=== PATIENT | male | born 1960 | race Caucasian/White ===

== ENCOUNTER 2017-08-24 15:36 | Inpatient (IN) | payer BC ==
--- NOTE | ~2017-08-24 | HEMODYNAMI ---
PATIENT:DURAN YARBROUGH MEDICAL RECORD: [id number] : 56 LOCATION:[id number] ADMISSION DATE: 08/25/17 Generatedon:08/25/201715:07 Patient name: DURAN YARBROUGH Patient #: [id number] SSN: [id number] : 1960 Date of study: 08/25/2017 Page: Of Hemodynamic Procedure Report Patient Data Patient Demographics Procedure consent was obtained First Name: DURAN Gender: Male Last Name: LINNEA : 1960 Patient #: [id number] Age: 56 year(s) Race: SSN: [id number] Additional ID: [id number] Contact details [address]: [address] [place] [address] State: [place] City: [place] Zip code: [address] Past Medical History Allergies: No known allergies Admission Admission Data Admission Date: 08/24/2017 Admission Time: 15:36 [facility] Lab Result Date: 08/24/2017 Lab Result Time: 0:00 Biochemistry Name Units Result Min Max BUN mg/dl 11 --(-*--)-- 7 18 Creatinine mg/dl 0.9 --(-*--)-- 0.6 1.3 CBC Name Units Result Min Max Hemoglobin g/dl 16.5 --(--*-)-- 13.5 17.5 Procedure Procedure Types Cath Procedure PCI Procedure Coronary Stent Initial Miscellaneous Procedures Moderate Sedation up to 15 minutes Procedure Description Procedure Date Procedure Date: 08/25/2017 Procedure Start Time: 14:53 Procedure Staff Name Function Stone Roa MD Performing Physician Eloisa Garcia RT Scrub Silas Cheek RN Nurse Flip Cevallos RT Monitor Procedure Data Cath Procedure Fluoroscopy Diagnostic fluoroscopy Total fluoroscopy Time: 2.8 time: 2.8 min min Diagnostic fluoroscopy Total fluoroscopy dose: dose: 110.57 mGy 110.57 mGy Contrast Material Contrast Material Type Amount (ml) Isovue 300 58 Entry Location Entry Primary Successful Side Size Upsize Upsize Entry Closure Succes sful Closure Location (Fr) 1 (Fr) 2 (Fr) Remarks Device Remarks Femoral Left 6 Fr Exoseal artery Short Estimated blood loss: 10 ml Procedure Complications No complications Procedure Medications Medication Administration Route Dosage Oxygen NC 2 l/min Heparin Flush Bag added to field 2 bags (1000units/500ml NS) 0.9% NaCl I.V. 100 ml/hr Solumedrol I.V. 125 mg Fentanyl I.V. 100 mcg Versed I.V. 2 mg Fentanyl I.V. 100 mcg Versed I.V. 2 mg Heparin Bolus I.V. 4000 units Fentanyl I.V. 100 mcg Hemodynamics Rest HGB: 16.5 (g/dl) Heart Rate: 59 (bpm) Snapshots Pre Cath Intra NCS Post Cath Vital Signs Time Heart Resp SPO2 etCO2 NIBP (mmHg) Rhythm Pain Sedation Rate (ipm) (%) (mmHg) Status Level (bpm) 14:16:57 60 21 97 29.8 164/90(134) NSR 0 (11) 10(A) , No pain 14:21:16 55 19 97 16.4 142/77(120) NSR 0 (11) 10(A) , No pain 14:25:38 52 16 97 33.6 142/77(119) NSR 0 (11) 10(A) , No pain 14:29:56 56 17 97 8.2 147/81(118) NSR 0 (11) 10(A) , No pain 14:34:18 56 18 93 13.4 142/77(109) NSR 0 (11) 10(A) , No pain 14:39:27 55 18 95 13.4 132/79(116) NSR 0 (11) 10(A) , No pain 14:43:47 56 19 96 18.6 142/79(125) NSR 0 (11) 10(A) , No pain 14:48:07 56 19 95 14.1 139/81(122) NSR 0 (11) 10(A) , No pain 14:52:25 69 18 92 2.2 134/88(115) NSR 0 (11) 10(A) , No pain 14:56:41 54 17 96 28.3 131/73(103) NSR 0 (11) 9(A) , No pain 15:00:55 61 16 91 21.6 136/77(117) NSR 0 (11) 9(A) , No pain 15:03:48 64 18 92 19.3 140/81(123) NSR 0 (11) 9(A) , No pain Medications Time Medication Route Dose Verified Delivered Reason Notes Effectiveness by by 14:18:24 Oxygen NC 2 Stone Barretty Per physician l/min Janina Cheek RN 14:18:33 Heparin Flush added 2 Stone Barretty used for Bag to bags Janina Cheek RN procedure (1000units/500ml field NS) 14:18:45 0.9% NaCl I.V. 100 Stone Rosen Per physician ml/hr Janina Cheek RN 14:18:55 Solumedrol I.V. 125 Stone Barretty Per physician mg Janina Cheek RN 14:53:53 Fentanyl I.V. 100 Stone Rosen for sedation mcg Janina Cheek RN 14:53:59 Versed I.V. 2 mg Stone Barretty for sedation Janina Cheek RN 14:56:26 Fentanyl I.V. 100 Stone Silas for sedation mcg Janina Cheek RN 14:56:30 Versed I.V. 2 mg Stone Rosen for sedation Janina Cheek RN 14:56:39 Heparin Bolus I.V. 4000 Stone Silas for units Janina Cheek RN anticoagulation 14:57:21 Fentanyl I.V. 100 Stone Rosen for sedation mcg Janina Cheek RN Procedure Log Time Note 13:50:17 Silas Cheek RN sent for patient. Start room use. 13:53:40 Informed consent obtained and on chart 13:53:44 Diagnostic Cath Status : Elective 13:57:18 Time tracking: Regular hours 13:57:22 Plan of Care:Hemodynamics will remain stable., Cardiac rhythm will remain stable., Comfort level will be maintained., Respiratory function will remain adequate., Patient/ family verbilizes understanding of procedure., Procedure tolerated without complication., Recovers from procedure without complications.. 14:05:13 Patient received from Med II to [facility] 3 Alert and oriented. Tansferred to table in Supine position. 14:05:14 Warm blankets applied, and airam hugger turned on for patient comfort. 14:05:15 Correct patient and procedure confirmed by team. 14:05:15 ECG and BP/O2 sat monitors applied to patient. 14:15:36 Vital chart was started 14:17:58 Baseline sample Acquired. 14:18:01 Rhythm: sinus rhythm 14:18:05 Full Disclosure recording started 14:18:20 H&P Date Dictated: 08/24/2017 Within 30 days and on chart.. 14:18:24 Oxygen 2 l/min NC was administered by Silas Cheek RN; Per physician; 14:18:33 Heparin Flush Bag (1000units/500ml NS) 2 bags added to field was administered by Silas Cheek RN; used for procedure; 14:18:45 0.9% NaCl 100 ml/hr I.V. was administered by Silas Cheek RN; Per physician; 14:18:55 Solumedrol 125 mg I.V. was administered by Silas Cheek RN; Per physician; 14:19:44 Pre-procedure instructions explained to patient. 14:19:46 Pre-op teaching completed and patient verbalized understanding. 14:19:47 Family in patients room. 14:19:48 Patient NPO since Midnight. 14:19:55 Patient allergic to No known allergies 14:19:57 Is the patient allergic to Iodine/contrast media? No. 14:19:58 Is patient on blood thinner?Yes 14:20:00 ACC The patient was administered the following blood thiners within the last 24 hours: ACCPlavix 14:20:01 Patient diabetic? No. 14:20:10 Previous problem with sedation/anesthesia? No ? 14:20:11 Snore? Yes 14:20:11 Sleep apnea? No 14:20:12 Deviated septum? No 14:20:13 Opens mouth fully? Yes 14:20:13 Sticks out tongue? Yes 14:20:16 Airway obstruction? No ? 14:20:22 Dentures? Yes In tight 14:20:26 Pre procedure: left dorsailis pedis pulse 1+ Palpable, but thready & weak; easily obliterated 14:23:07 Patient pain scale 0/10 ?. 14:23:52 IV patent on arrival in right antecubital with 0.9% NaCl at [facility]. 14:23:55 Lab results completed and on chart. 14:23:58 Left groin area was prepped with chlora-prep and draped in sterile fashion 14::59 Alarms reviewed by R. N. 14::59 Sharps counted by scrub and verified by R.N. 14:24:02 Use device set Femoral PCI 14:24:03 Tegaderm 4 x 4 opened to sterile field. 14:24:05 Acist Manifold opened to sterile field. 14:24:07 Acist Syringe opened to sterile field. 14:24:07 Acist Hand Control opened to sterile field. 14:24:08 Bag Decanter opened to sterile field. 14:24:08 Medline Cath Pack opened to sterile field. 14:24:09 Terumo 6Fr [place] Sheath opened to sterile field. 14:24:09 St Hector 260cm J .035 wire opened to sterile field. 14:24:10 Merit BasixCompak Inflation Kit opened to sterile field. 14:24:18 Zero performed for pressure channel P1 14:45:37 Physician arrived 14:45:37 --------ALL STOP TIME OUT------ 14:45:37 Final Timeout: patient, procedure, and site verified with staff and physician. All members of the team are in agreement. 14:45:39 Left groin site verified by team. 14:45:49 Physical assessment completed. ASA score P 2 - A patient with mild systemic disease as per Stone Roa MD. 14:45:52 Sedation plan: IV Moderate Sedation Versed, Fentanyl 14:53:53 Fentanyl 100 mcg I.V. was administered by Silas Cheek RN; for sedation; 14:53:55 Local anesthetic to left femerol artery with Lidocaine 2% by Stone Roa MD.INITIAL ACCESS ONLY 14:53:59 Versed 2 mg I.V. was administered by Silas Cheek RN; for sedation; 14:54:02 A 6 Fr Short sheath was inserted into the Left Femoral artery 14:55:14 Cordis 6FR XBLAD 4.0 guide catheter opened to sterile field. 14:55:20 6 Fr xblad 4 guide catheter was inserted over the wire 14:55:43 [place] Sci PT Graphix J 182cm 0.014 guide wire opened to sterile field. 14:55:56 pt graphix wire advanced. 14:55:58 Wire advanced across lesion. 14:56:26 Fentanyl 100 mcg I.V. was administered by Silas Cheek RN; for sedation; 14:56:30 Versed 2 mg I.V. was administered by Silas Cheek RN; for sedation; 14:56:39 Heparin Bolus 4000 units I.V. was administered by Silas Cheek RN; for anticoagulation; 14:57:05 Inflation Number: 1 A Newry OTW 2.5 x 38 stent was prepped and advanced across the Prox LAD. The stent was deployed at 15 JOSHUA for 0:10 (min:sec). 14:57:13 Stent catheter was removed intact over wire. 14:57:21 Fentanyl 100 mcg I.V. was administered by Silas Cheek RN; for sedation; 15:00:14 Inflation Number: 1 A Wilberto RX 2.25 x 18 stent was prepped and advanced across the Mid LAD. The stent was deployed at 13 JOSHUA for 0:10 (min:sec). 15:00:41 Stent catheter was removed intact over wire. 15:00:41 Wire removed. 15:00:42 Guide catheter removed. 15:00:47 Cordis 6Fr Exoseal opened to sterile field. 15:00:53 Sheath removed intact; hemostasis achieved with Exoseal to the Left Femoral artery. 15:00:54 Procedure ended.(Physican Out) 15:01:56 Fluoroscopy time 02.80 minutes. 15:02:02 Flurop Dose total: 110.57 15:02:02 Fluoroscopy dose: 110.57 mGy 15:02:05 Contrast amount:Isovue 300 58ml. 15:02:06 Sharps counted by scrub and verified by R.N. 15:02:10 Insertion/operative site no bleeding no hematoma. 15:02:13 Post-op/insertion site Left Femoral artery dressed using a 4 x 4 and Tegaderm. 15:02:27 Post left femerol artery:stable, soft, clean and dry 15:02:28 Post Procedure Pulses reassessed and unchanged 15:02:34 Post-procedure physical assessment completed. ASA score P 2 - A patient with mild systemic disease as per Stone Roa MD. 15:02:40 Post procedure rhythm: unchanged. 15:02:43 Estimated blood loss: 10 ml 15:02:45 Post procedure instruction explained to patient.Patient verbalizes understanding. 15:02:45 Patient needs reinforcement of post procedure teaching. 15:02:57 Procedure type changed to Cath procedure, PCI procedure, Coronary Stent Initial, Miscellaneous Procedures, Moderate Sedation up to 15 minutes 15:06:09 PERCUTANEOUS ENTRY 19GA needle opened to sterile field. 15:06:22 Procedure and supply charges have been captured, reviewed, submitted and are correct. 15:06:24 Procedure Complication : No complications 15:06:26 Vital chart was stopped 15:06:27 See physician's report for complete and final results. 15:06:29 Report given to PCU. 15:06:31 Patient transfered to PCU with Stretcher. 15:07:01 End room use (Document Last) Intervention Summary Intervention Notes Time ActionType Lesion and Equipment Action# Pressure Duration Attributes Used 14:57:05 Place stent Prox LAD Newry OTW 1 15 00:10 2.5 x 38 stent 15:00:14 Place stent Mid LAD Newry RX 1 13 00:10 2.25 x 18 stent Device Usage Item Name Manufacture Quantity Catalog Number Hospital Part Current Min imal Lot# / Charge Number Stock Stock Serial# Code Tegaderm 4 x 3M 1 [id number] 461349 932090 5 4 Acist Acist 1 81898 373113 907669 241778 5 Manifold Medical Systems Inc Acist Acist 1 96354 781209 294695 340895 20 Syringe Medical Systems Inc Acist Hand Acist 1 07386 058045 111222 055850 5 Control Medical Systems Inc Bag Decanter Microtek 1 2002S 582845 97628 012548 5 Medical Inc. Medline Cath Cardinal 1 [id number] 829728 88927 334580 5 Pack Health Terumo 6Fr Terumo 1 [id number] 314988 223828 482027 [address] St Hector 1 936133 627934 075528 890907 30 260cm J .035 wire Merit Merit 1 [id number] 565479 473075 055000 15 Yobongo Medical Inflation Kit Cordis 6FR Cardinal 1 [id number] 554527 044500 392534 3 XBLAD 4.0 Health guide catheter Maywood Sci Maywood 1 [id number] 271087 353117 033593 5 PT Gateway EDI Scientific 182cm 0.014 guide wire Wilberto OTW 2.5 Medtronic 1 [id number] 113870 90734 714229 5 [id number] x 38 stent Newry RX 2.25 Medtronic 1 [id number] 291389 0390146 047448 5 [id number] x 18 stent Cordis 6Fr Cardinal 1 [id number] 166837 449018 019217 10 [facility] 1 [id number] 172108 267700 5 ENTRY 19GA needle Signature Audit [place] Stage Time Signature Unsigned Intra-Procedure 08/25/2017 Flip Cevallos 3:07:18 PM RT(R) Signatures Monitor : Flip Cevallos RT Signature : Date : Time : [address] [id number]
--- NOTE | ~2017-08-24 | HEMODYNAMI ---
PATIENT:DURAN YARBROUGH MEDICAL RECORD: [id number] : 56 [id number] ADMISSION DATE: 08/24/17 Generatedon:08/24/201716:32 Patient name: DURAN YARBROUGH Patient #: [id number] SSN: [id number] : 1960 Date of study: 08/24/2017 Page: Of Hemodynamic Procedure Report Patient Data Patient Demographics Procedure consent was obtained First Name: DURAN Gender: Male Last Name: LINNEA : 1960 Patient #: [id number] Age: 56 year(s) Race: SSN: [id number] Additional ID: [id number] Contact details Address: [address] [place] [address] State: [place] City: [place] Zip code: [address] Admission Admission Data Admission Date: 08/24/2017 Admission Time: 15:36 Room #: D.2119 Lab Results Lab Result Date: 08/24/2017 Lab Result Time: 0:00 Biochemistry Name Units Result Min Max BUN mg/dl 11 --(-*--)-- 7 18 Creatinine mg/dl 0.9 --(-*--)-- 0.6 1.3 CBC Name Units Result Min Max Hemoglobin g/dl 16.5 --(--*-)-- 13.5 17.5 Procedure Procedure Types Cath Procedure Diagnostic Procedure [facility] w/Coronaries PCI Procedure Coronary Stent Initial Miscellaneous Procedures Moderate Sedation up to 30 minutes Procedure Description Procedure Date Procedure Date: 08/24/2017 Procedure Start Time: 16:10 Procedure End Time: 16:29 Procedure Staff Name Function Stone Roa MD Performing Physician Bebe Cyr RT Scrub Eloisa Garcia RT Monitor Andreia House RN Nurse Procedure Data Cath Procedure Fluoroscopy Diagnostic fluoroscopy Total fluoroscopy Time: 6.1 time: 6.1 min min Diagnostic fluoroscopy Total fluoroscopy dose: 718 dose: 718 mGy mGy Contrast Material Contrast Material Type Amount (ml) Isovue 300 98 Entry Location Entry Primary Successful Side Size Upsize Upsize Entry Closure Succes sful Closure Location (Fr) 1 (Fr) 2 (Fr) Remarks Device Remarks Femoral Right 6 Fr Exoseal artery Short Estimated blood loss: 5 ml Diagnostic catheters Device Type Used For End Catheter Placement Cordis 5Fr Pigtail LV Angiography Catheter (MP) Cordis 5Fr JL 4.0 Left Coronary Catheter (MP) Angiography Cordis 5Fr 3DRC Catheter Right Coronary (MP) Angiography Procedure Complications No complications Procedure Medications Medication Administration Route Dosage Benadryl I.V. 50 mg Oxygen NC 2 l/min Lidocaine 2% added to field 20 Heparin Flush Bag added to field 2 bags (1000units/500ml NS) 0.9% NaCl I.V. 100 Versed I.V. 1 mg Fentanyl I.V. 50 mcg Heparin Bolus I.V. 4000 units Versed I.V. 1 mg Fentanyl I.V. 50 mcg Versed I.V. 1 mg Fentanyl I.V. 50 mcg Versed I.V. 1 mg Fentanyl I.V. 50 mcg Hemodynamics Rest HGB: 16.5 (g/dl) Heart Rate: 56 (bpm) Pressure Samples Time Site Value (mmHg) Purpose Heart Use Rate(bpm) 16:12 LV 44/-5,10 Snapshot 52 Snapshots Pre Cath Intra NCS Post Cath Vital Signs Time Heart Resp SPO2 etCO2 NIBP (mmHg) Rhythm Pain Sedation Rate (ipm) (%) (mmHg) Status Level (bpm) 16:02:58 52 16 94 0 166/90(136) NSR 0 (11) 10(A) , No pain 16:07:49 59 15 96 23.1 160/98(126) NSR 0 (11) 10(A) , No pain 16:12:38 52 29 94 4.4 140/81(108) NSR 0 (11) 9(A) , No pain 16:17:24 58 16 93 17.8 142/83(119) NSR 0 (11) 9(A) , No pain 16:22:09 69 16 95 23.8 146/83(115) NSR 0 (11) 9(A) , No pain 16:26:56 77 19 95 18.6 156/90(128) NSR 0 (11) 10(A) , No pain Medications Time Medication Route Dose Verified Delivered Reason Notes Effectiveness by by 16:01:51 Benadryl I.V. 50 mg Stone Buffie used for Janina House RN procedure 16:02:20 Oxygen NC 2 Stone Buffie used for l/min Janina House RN procedure 16:05:12 Lidocaine 2% added 20ml Stone Stone for local to vial Janina Roa MD anesthetic field 16:05:18 Heparin Flush added 2 Stone Stone used for Bag to bags Janina Roa MD procedure (1000units/500ml field NS) 16:05:27 0.9% NaCl I.V. 100\ Stone Buffie Per physician ml/hr Janina House RN 16:07:14 Versed I.V. 1 mg Stone Buffie for sedation Janina House RN 16:07:17 Fentanyl I.V. 50 Stone Buffie for sedation mcg Janina House RN 16:11:49 Versed I.V. 1 mg Stone Buffie for sedation Janina House RN 16:11:55 Fentanyl I.V. 50 Stone Buffie for sedation mcg Janina House RN 16:17:13 Heparin Bolus I.V. 4000 Stone Buffie for verifi ed units Janina House RN anticoagulation with dr roa 16:18:49 Versed I.V. 1 mg Stone Buffie for sedation Janina House RN 16:18:53 Fentanyl I.V. 50 Stone Buffie for sedation mcg Janina House RN 16:24:53 Versed I.V. 1 mg Stone Buffie for sedation Janina House RN 16:24:57 Fentanyl I.V. 50 Stone Buffie for sedation mcg Janina House RN Procedure Log Time Note 15:50:09 Bebe Cyr RT(R) sent for patient. Start room use. 16:00:22 Informed consent obtained and on chart 16:00:24 Diagnostic Cath Status : Elective 16:01:25 Time tracking: Regular hours 16:01:33 Plan of Care:Hemodynamics will remain stable., Cardiac rhythm will remain stable., Comfort level will be maintained., Respiratory function will remain adequate., Patient/ family verbilizes understanding of procedure., Procedure tolerated without complication., Recovers from procedure without complications.. 16:01:50 Patient received from Med II to [facility] 1 Alert and oriented. Tansferred to table in Supine position. 16:01:51 Benadryl 50 mg I.V. was administered by Andreia House RN; used for procedure; 16:01:52 Warm blankets applied, and airam hugger turned on for patient comfort. 16:01:53 Correct patient and procedure confirmed by team. 16:01:53 ECG and BP/O2 sat monitors applied to patient. 16:01:54 Vital chart was started 16:01:55 Baseline sample Acquired. 16:02:12 Rhythm: sinus rhythm 16:02:18 H&P Date Dictated: 08/24/2017 New H&P dictated by physician.. 16:02:20 Oxygen 2 l/min NC was administered by Andreia House RN; used for procedure; 16:02:20 Pre-procedure instructions explained to patient. 16:02:21 Pre-op teaching completed and patient verbalized understanding. 16:02:23 Family unavailable. 16:02:24 Patient NPO since Breakfast. 16:03:20 Is the patient allergic to Iodine/contrast media? No. 16:03:22 Was the patient premedicated? No 16:03:23 Is patient on blood thinner?Yes 16:03:26 ACC The patient was administered the following blood thiners within the last 24 hours: ACCPlavix 16:03:34 Patient diabetic? No. 16:03:38 Previous problem with sedation/anesthesia? No ? 16:03:40 Snore? Yes 16:03:41 Sleep apnea? No 16:03:42 Deviated septum? No 16:03:43 Opens mouth fully? Yes 16:03:44 Sticks out tongue? Yes 16:03:47 Airway obstruction? No ? 16:03:59 Dentures? Yes in tight 16:04:03 Pre procedure: right dorsailis pedis pulse 1+ Palpable, but thready & weak; easily obliterated 16:04:06 Pre procedure: left dorsailis pedis pulse 1+ Palpable, but thready & weak; easily obliterated 16:04:14 Patient pain scale 3/10 ?. 16:05:12 Lidocaine 2% 20ml vial added to field was administered by Stone Roa MD; for local anesthetic; 16:05:18 Heparin Flush Bag (1000units/500ml NS) 2 bags added to field was administered by Stone Roa MD; used for procedure; 16:05:27 0.9% NaCl 100\ ml/hr I.V. was administered by Andreia House RN; Per physician; 16:05:50 IV patent on arrival in left forearm with 0.9% NaCl at [facility]. 16:05:55 Lab results completed and on chart. 16:05:59 Right groin area was prepped with chlora-prep and draped in sterile fashion 16:06:00 Alarms reviewed by R. N. 16:06:00 Sharps counted by scrub and verified by R.N. 16:06:04 Physician arrived 16:06:06 --------ALL STOP TIME OUT------ 16:06:06 Final Timeout: patient, procedure, and site verified with staff and physician. All members of the team are in agreement. 16:06:09 Right groin site verified by team. 16:06:13 Physical assessment completed. ASA score P 2 - A patient with mild systemic disease as per Stone Roa MD. 16:06:17 Sedation plan: IV Moderate Sedation Versed, Fentanyl 16:06:23 Use device set Femoral Dx 16:06:24 Acist Syringe opened to sterile field. 16:06:25 Bag Decanter opened to sterile field. 16:06:25 Medline Cath Pack opened to sterile field. 16:06:25 Terumo 5Fr [place] Sheath opened to sterile field. 16:06:26 St Hector 260cm J .035 wire opened to sterile field. 16:06:27 Acist Hand Control opened to sterile field. 16:06:28 Acist Manifold opened to sterile field. 16:06:29 Diagnostic Infinity 5Fr Multipack catheter opened to sterile field. 16:06:29 Tegaderm 4 x 4 opened to sterile field. 16:07:14 Versed 1 mg I.V. was administered by Andreia House RN; for sedation; 16:07:17 Fentanyl 50 mcg I.V. was administered by Andreia House RN; for sedation; 16:07:20 Lab Result : Hemoglobin 16.5 g/dl 16:07:20 Lab Result : Creatinine 0.9 mg/dl 16:07:20 Lab Result : BUN 11 mg/dl 16:10:39 Procedure started. 16:10:40 Full Disclosure recording started 16:10:45 Local anesthetic to right femoral artery with Lidocaine 2% by Stone Roa MD.INITIAL ACCESS ONLY 16:10:48 Zero performed for pressure channel P1 16:11:45 A 6 Fr Short sheath was inserted into the Right Femoral artery 16:11:49 Versed 1 mg I.V. was administered by Andreia House RN; for sedation; 16:11:55 Fentanyl 50 mcg I.V. was administered by Andreia House RN; for sedation; 16:11:56 A Cordis 5Fr Pigtail Catheter (MP) was advanced over the wire and used for LV Angiography. 16:12:39 LV hemodynamics recorded. 16:12:41 LV gram done using SARMIENTO 16:12:45 Injector settings: Ml/sec: 5, Volume: 15, 16:12:52 EF : 50 % 16:12:56 Catheter removed. 16:13:00 A Cordis 5Fr JL 4.0 Catheter (MP) was advanced over the wire and used for Left Coronary Angiography. 16:13:33 LCA angiography performed. 16:13:36 Injector settings: Ml/sec: 3, Volume: 6, 16:14:20 Merit BasixCompak Inflation Kit opened to sterile field. 16:15:13 Catheter removed. 16:15:48 A Cordis 5Fr 3DRC Catheter (MP) was advanced over the wire and used for Right Coronary Angiography. 16:16:06 RCA angiography performed. 16:16:10 Injector settings: Ml/sec: 3, Volume: 6, 16:16:12 Proceeding to intervention. 16:17:04 Vieira Whisper J 300cm 0.014 guide wire opened to sterile field. 16:17:13 Heparin Bolus 4000 units I.V. was administered by Andreia House RN; for anticoagulation; verified with dr roa 16:18:04 Medtronic Launcher 6Fr AR 2.0 guide catheter opened to sterile field. 16:18:05 Medtronic Launcher 6Fr AR 1.0 SH guide catheter opened to sterile field. 16:18:30 6 Fr ar 2 guide catheter was inserted over the wire 16:18:38 Guide Catheter removed. unable to cannulate vessel. 16:18:48 6 Fr ar 1 sh guide catheter was inserted over the wire 16:18:49 Versed 1 mg I.V. was administered by Andreia House RN; for sedation; 16:18:53 Fentanyl 50 mcg I.V. was administered by Andreia House RN; for sedation; 16:19:40 whisper wire advanced. 16:20:30 Inflation number: 1 A Patillas Sci Rowan 3.0 X 20 balloon was prepped and advanced across the Mid RCA, then inflated to 13 JOSHUA for 0:10 (min:sec). 16:21:03 Balloon removed over the wire. 16:22:40 Inflation Number: 2 A Skyforest OTW 3.5 x 26 stent was prepped and advanced across the Mid RCA. The stent was deployed at 13 JOSHUA for 0:10 (min:sec). 16:23:29 Stent catheter was removed intact over wire. 16:24:53 Versed 1 mg I.V. was administered by Andreia House RN; for sedation; 16:24:57 Fentanyl 50 mcg I.V. was administered by Andreia House RN; for sedation; 16:25:48 Inflation Number: 1 A Skyforest OTW 3.5 x 34 stent was prepped and advanced across the Prox RCA. The stent was deployed at 13 JOSHUA for 0:10 (min:sec). 16:26:28 Stent catheter was removed intact over wire. 16:26:29 Wire removed. 16:26:29 Guide catheter removed. 16:26:42 Cordis 6Fr Exoseal opened to sterile field. 16:26:56 Sheath removed intact; hemostasis achieved with Exoseal to the Right Femoral artery. 16:27:27 Procedure ended.(Physican Out) 16:28:15 Fluoroscopy time 06.10 minutes. 16:28:27 Fluoroscopy dose: 718 mGy 16:28:27 Flurop Dose total: 718 16:28:36 Contrast amount:Isovue 300 98ml. 16:28:41 Sharps counted by scrub and verified by R.N. 16:28:45 Insertion/operative site no bleeding no hematoma. 16:28:48 Post-op/insertion site Right Femoral artery dressed using a 4 x 4 and Tegaderm. 16:28:52 Post right femoral artery:stable 16:28:53 Post Procedure Pulses reassessed and unchanged 16:28:56 Post procedure rhythm: unchanged. 16:28:59 Estimated blood loss: 5 ml 16:29:00 Post procedure instruction explained to patient.Patient verbalizes understanding. 16:29:01 Patient needs reinforcement of post procedure teaching. 16:29:28 Procedure type changed to Cath procedure, Diagnostic procedure, LHC, LHC w/Coronaries, PCI procedure, Coronary Stent Initial, Miscellaneous Procedures, Moderate Sedation up to 30 minutes 16:29:30 Procedure and supply charges have been captured, reviewed, submitted and are correct. 16:29:34 Procedure Complication : No complications 16:29:37 Vital chart was stopped 16:29:37 See physician's report for complete and final results. 16:29:41 Report given to [facility]. 16:29:44 Patient transfered to [facility] with Stretcher. 16:29:46 Procedure ended. 16:29:46 Full Disclosure recording stopped 16:29:56 ACC-PCI Only Patient was given prescriptions, or instructed by Stone Roa MD to start/continue the following medications upon discharge: Plavix 16:29:58 End room use (Document Last) Intervention Summary Intervention Notes Time ActionType Lesion and Equipment Action# Pressure Duration Attributes Used 16:20:30 Inflate Mid RCA Patillas 1 13 00:10 balloon Sci Rowan 3.0 X 20 balloon 16:22:40 Place stent Mid RCA Skyforest OTW 2 13 00:10 3.5 x 26 stent 16:25:48 Place stent Prox RCA Wilberto OTW 1 13 00:10 3.5 x 34 stent Device Usage Item Name Manufacture Quantity Catalog Number Hospital Part Current Min imal Lot# / Charge Number Stock Stock Serial# Code Acist Acist 1 85919 558064 878138 979977 20 Syringe Medical Systems Inc Bag Microtek 1 2002S 342583 87671 240420 5 Happy Hour Pal Inc. Medline Cardinal 1 [id number] 167997 48776 589184 5 Cath Atmocean Terumo 5Fr Terumo 1 HSS310 949459 039589 377538 [address] St Hector 1 618784 784883 368491 052809 30 260cm J .035 wire Acist Hand Acist 1 00391 755555 828027 646554 5 Pocket Change Card [employer] Systems Inc Acist Acist 1 78676 505869 305508 321520 5 DinersGroup Medical Systems Inc Diagnostic Cardinal 1 IL0416 856006 16516 788163 30 Shoes4you 5Fr Multipack catheter Tegaderm 4 3M 1 1626W 916531 439021 774791 5 x 4 Cordis 5Fr Cardinal 1 887794 5 Pigtail Health Catheter (MP) Cordis 5Fr Cardinal 1 608702 5 JL 4.0 Health Catheter (MP) [facility] 1 TB8536 315790 727499 004564 15 Bio Medical Inflation Kit Cordis 5Fr Cardinal 1 611741 5 3DRC Health Catheter (MP) Vieira Vieira 1 [id number] 530094 123462 139987 5 Whisper J Vascular 300cm 0.014 guide wire Medtronic Medtronic 1 [id number] 784282 21741 230210 1 Launcher 6Fr AR 2.0 guide catheter Medtronic Medtronic 1 [id number] 437192 77220 530553 1 Launcher 6Fr AR 1.0 SH guide catheter Patillas Sci Patillas 1 [id number] 238066 503136 367795 1 [id number] ThoughtBox 3.0 X 20 balloon Skyforest OTW Medtronic 1 [id number] 635085 9366630 295646 5 [id number] 3.5 x 26 stent Wilberto OTW Medtronic 1 [id number] 198421 4225452 586897 5 [id number] 3.5 x 34 stent Cordis 6Fr Cardinal 1 EX600 902358 289430 852053 10 [facility] Signature Audit Spencer Stage Time Signature Unsigned Intra-Procedure 08/24/2017 Eloisa Garcia 4:32:45 PM RT(R) Signatures Monitor : Eloisa Garcia RT Signature : Date : Time : [facility] [address] [place] [address]
[2017-08-24 15:54] VITALS: BP 143/82; BMI 31.8
[2017-08-24 16:44] VITALS: BP 142/82
--- NOTE | 2017-08-24 16:52 | NUR ---
BACK FROM [employer] TECHNICIAN. VS WNL. RIGHT GROIN STABLE WITHOUT BLEEDING OR HEMATOMA NOTED. WILL MONITOR.
[2017-08-24] MEDS ORDERED: NORVASC10 MG PO (16:54)
[2017-08-24] MEDS ORDERED: CELEXA20 MG PO (16:55)
[2017-08-24] MEDS ORDERED: VALIUM5 MG PO (16:55)
[2017-08-24] MEDS ORDERED: PLAVIX75 MG PO (16:55)
[2017-08-24] MEDS ORDERED: HYDROCODONE-APA1 TAB PO (16:56)
[2017-08-24] MEDS ORDERED: MECLIZINE HCL25 MG PO (16:56)
[2017-08-24] MEDS ORDERED: PROTONIX40 MG PO (16:57)
[2017-08-24] MEDS ORDERED: TOPROL XL50 MG PO (16:57)
[2017-08-24] MEDS ORDERED: CARAFATE1 G PO (16:58)
[2017-08-24] MEDS ORDERED: LIDOCAINE 2 %100 ML PO (16:59)
--- NOTE | 2017-08-24 19:51 | NUR ---
RESUMED CARE OF PT, LYING IN BED RESPIRATIONS EVEN AND UNLABORED ON 2LPM VIA NC. 57 SB ON TELEMETRY. RIGHT GROIN WITHIN NORMAL LIMITS, PEDAL PULSE PALPABLE. RIGHT AC INFUSING NS @ 100. PLAN OF CARE DISCUSSED, CALL LIGHT IN REACH. WILL CONTINUE TO MONITOR. SEE NURSE ASSESSMENT.
[2017-08-24 21:42] VITALS: BP 123/65
--- NOTE | 2017-08-24 21:53 | NUR ---
BEDREST IS UP, PT UP IN ROOM TAKING A SPONGE BATH. WILL CONTINUE TO MONITOR.
--- NOTE | 2017-08-25 02:22 | NUR ---
CALL LIGHT IN REACH. WILL CONTINUE WITH PLAN OF CARE. 50 SB ON TELEMETRY
--- NOTE | 2017-08-25 06:56 | NUR ---
NO CHANGES FROM PREVIOUS ASSESSMENT, CALL LIGHT IN REACH.
--- NOTE | 2017-08-25 08:00 | NUR ---
ASSESSMENT DONE. DENIES NEEDS,
[2017-08-25 08:53] VITALS: BP 146/79
--- NOTE | 2017-08-25 09:21 | NUR ---
TELEMETRY SR. CALL LIGHT IN REACH. NO C/O VOICED. WILL CONT. PLAN OF CARE.
[2017-08-25 09:46] VITALS: BMI 31.7
--- NOTE | 2017-08-25 09:55 | NUR ---
C/O OF ITCHING ALL OVER. NO RASH NOTED. DR MURPHY NOTIFIED. NEW ORDERS GIVEN.
--- NOTE | 2017-08-25 10:04 | NUR ---
CONSENTS SIGNED FOR [facility].
[2017-08-25 11:57] VITALS: BP 116/69
--- NOTE | 2017-08-25 14:03 | NUR ---
PRE-OPS GIVEN. TO EMBEDDED PROCESSOR BY BED.
--- NOTE | 2017-08-25 15:26 | NUR ---
BACK FROM [facility]. VS WNL. LEFT GROIN STABLE WITHOUT BLEEDING OR HEMATOMA NOTED. WILL MONITOR.
--- NOTE | 2017-08-25 19:46 | NUR ---
RESUMED CARE OF PT, LYING IN BED RESPIRATIONS EVEN AND UNLABORED ON 2LPM VIA NC. BEDREST IS UP, LEFT AND RIGHT GROINS ARE WNL WITH PEDAL PULSES PALPABLE. CALL LIGHT IN REACH. WILL CONTINUE TO MONITOR. SEE NURSE ASSESSMENT.
[2017-08-25 21:18] VITALS: BP 133/111
[2017-08-26 01:16] VITALS: BP 106/52
[2017-08-26 04:49] VITALS: BP 136/68
--- NOTE | 2017-08-26 05:39 | NUR ---
LYING IN BED WITH CALL LIGHT IN REACH. WILL CONTINUE WITH PLAN OF CARE.
--- NOTE | 2017-08-26 06:42 | NUR ---
NO CHANGES FROM PREVIOUS ASSESSMENT, HAS ITCHED ON AND OFF THROUGHOUT THE NIGHT. BENADRYL WAS GIVEN X 2.
[2017-08-26 08:00] VITALS: BP 161/83
[2017-08-26] MEDS ORDERED: PRAVACHOL20 MG PO (11:39)
[2017-08-26] MEDS ORDERED: ASPIRIN81 MG PO (11:39)
--- NOTE | 2017-08-26 12:56 | NUR ---
IV AND TELEMETRY DCD. DC PLANS GIVEN. UNDERSTANDING VOICED. LEAVING HOSPITOL WITH FAMILY MEMBER.
--- NOTE | 2017-08-29 12:24 | HP ---
PATIENT: DURAN YARBROUGH MEDICAL RECORD: [id number] ACCOUNT: [id number] LOCATION:[facility].2119 : 56 ADMISSION DATE: 08/25/17 HISTORY AND PHYSICAL EXAMINATION DIAGNOSES: 1. Non-Q-wave myocardial infarction. 2. Hypertension. HISTORY OF PRESENT ILLNESS: This is a gentleman with ____ who has been having 2 weeks of chest pain. He attributed this to GERD, has been treated for GERD; however, the pain has continued to worsen. He presented to [facility] with worsening chest pain, troponin is positive for non-Q-wave myocardial infarction. His EKG is with nonspecific ST-T abnormalities. He continues to have the episodes of pain. REVIEW OF SYSTEMS: The patient reports easy bruising but reports no swollen glands. The patient reports no fever, no night sweats, no significant weight gain, no significant weight loss. No significant exercise tolerance. The patient reports no dry eyes, no irritation, no vision change. Patient reports no difficulty hearing and no ear pain. Patient reports no frequent nose bleeds or nose and sinus problems. Patient reports on arm pain on exertion. No shortness of breath while lying down. No history of heart murmur. Patient reports no cough, no wheezing or coughing up blood. Patient reports no abdominal pain, no vomiting. Normal appetite. No diarrhea and not vomiting blood. No nausea and no constipation. Patient reports no incontinence. No difficulty urinating. No hematuria. No increased frequency. Patient reports no muscle aches. No weakness, no arthralgias, no back pain. No swelling of the extremities. Patient reports no abnormal mole, no jaundice, no rashes. Reports no loss of consciousness. No weakness and no numbness. No seizures, dizziness, or headaches. The patient reports no depression, no sleep disturbance, feeling safe in a relationship and no alcohol abuse. Patient reports on fatigue. Reports no runny nose or sinus pressure. No itching, no hives, and no frequent sneezing. PHYSICAL EXAMINATION: GENERAL APPEARANCE: Well-nourished, well-developed, appears stated age. Level of distress, comfortable. PSYCHIATRIC: Mental status, alert, normal affect. Orientation, oriented to time, place and person. EYES: Lids and conjunctiva, noninjected. No discharge, no pallor. ENT: Lips, teeth, gums, normal dentition. Oropharynx, no cyanosis, no pallor. NECK: Carotid arteries, bilateral normal upstroke, no bruits, no thrills. JUGULAR VEINS: No jugular venous pressure or distention. CERVICAL LYMPH NODES: Nontender, nonenlarged. THYROID: Not enlarged. Nontender. No nodules. LUNGS: Respiratory effort, unlabored. CHEST: Normal curvature. No thoracic deformity. No chest wall tenderness. Percussion, resonant. Auscultation, clear. No wheezes, no rales, no rhonchi. CARDIOVASCULAR: Precordial exam, nondisplaced. No heaves or pericardial thrills. Rate and rhythm, regular. Heart sounds, normal S1, normal S2. No S3, no gallop, no rub. Systolic murmur, not heard. Diastolic murmur, not heard. EXTREMITIES: No cyanosis, no edema. Peripheral pulses, full and equal in all extremities, except as noted. No bruits appreciated. ABDOMEN: Soft, nondistended. Normal aorta. No bruit. Nontender. No masses. HISTORY AND PHYSICAL [id number] SUIRE,DURAN Liver, nontender, no hepatomegaly. Spleen, nontender, no splenomegaly. MUSCULOSKELETAL: No joint tenderness. No joint swelling. No erythema. NEUROLOGICAL: Normal gait, normal strength, normal tone. SKIN: Warm and dry. OVERALL IMPRESSION: Non-Q-wave myocardial infarction with continued angina. We will proceed with coronary angiography. Further care depends on the findings of the angiography. TRANSINT:[id number] Voice Confirmation ID: [id number] DOCUMENT ID: [id number] FLOYD MURPHY MD at 1224 CC: [id number] DICTATION DATE: 08/24/17 1544 ROLL PICKER: 08/24/17 1649 DIS IN 08/26/17 [place] [id number] [place] [address]
--- NOTE | 2017-09-09 14:14 | OP ---
PATIENT NAME: DURAN YARBROUGH MEDICAL RECORD: [id number] :56 LOCATION:D.M2 D.2119 ADMISSION DATE:08/25/17 SURGEON: FLOYD MURPHY MD DATE OF OPERATION: 08/25/2017 PROCEDURES: 1. PTCA stent LAD. 2. Selective coronary angiography. PROCEDURE IN DETAIL: After informed consent was obtained and after a detailed explanation of the risks, benefits as well as alternative therapies, the patient elected to proceed with angiogram and angioplasty. The left femoral area was prepped and draped in normal sterile fashion. Left femoral artery was cannulated via modified Seldinger technique with placement of 6-Marshallese sheath. All catheters exchanged through this sheath. FINDINGS: The left anterior descending has a long area of 90-95% stenosis addressed with a 2.5 x 38 and 2.25 x 18, both [place] stents. Result was 0% residual stenosis. OVERALL IMPRESSION: Successful percutaneous transluminal coronary angioplasty stent of the left anterior descending going from long area of 95% initial stenosis to 0% residual. TRANSINT:[id number] Voice Confirmation ID: [id number] DOCUMENT ID: [id number] FLOYD MURPHY MD at 1414 CC: [id number] DICTATION DATE: 08/25/17 1505 DICTATING TRANSCRIBING MACHINE SERVICER: 08/25/17 1518 DIS IN 08/26/17 [place] [id number]
--- NOTE | 2017-09-09 14:14 | OP ---
PATIENT NAME: DURAN YARBROUGH MEDICAL RECORD: [id number] :56 LOCATION:D.M2 D.2119 ADMISSION DATE:08/25/17 SURGEON: FLOYD MURPHY MD DATE OF OPERATION: 08/24/2017 DATE OF SERVICE: 08/24/2017 PROCEDURES: 1. PTCA stent RCA. 2. Left heart catheterization. 3. Selective coronary angiography. 4. Left ventriculogram. INDICATION: Angina and coronary artery disease. PROCEDURE IN DETAIL: After informed consent was obtained and after a detailed explanation of the risks, benefits as well as alternative therapies, the patient elected to proceed with angiogram and angioplasty. The right femoral area was prepped and draped in normal sterile fashion. The right femoral artery was cannulated via modified Seldinger technique with placement of 6-Turkmen sheath. All catheters exchanged through this sheath. FINDINGS: The left ventriculogram was performed in standard 30-degree SARMIENTO view, reveals preserved cardiac wall motion, ejection fraction 50%. SELECTIVE CORONARY ANGIOGRAPHY: 1. Left main is with no significant angiographic disease. 2. Left anterior descending has a 90% to 95% stenosis all throughout the proximal vessel. 3. Left circumflex has 75% stenosis in the mid distal vessel. 4. Right coronary has 99% stenosis in the mid vessel. PTCA STENT OF THE RIGHT CORONARY: Stents used were 3.5 x 26 and 3.5 x 34, both Wilberto stents. Result was 0% residual stenosis. OVERALL IMPRESSION: Successful percutaneous transluminal coronary angioplasty stent of the right coronary artery going from 99% initial stenosis to 0% residual. PLAN: PTCA stent of the LAD and circumflex in the near future in a staged fashion. TRANSINT:[id number] Voice Confirmation ID: [id number] DOCUMENT ID: [id number] FLOYD MURPHY MD at 1414 CC: [id number] DICTATION DATE: 08/24/17 1632 CLASSICS TEACHER: 08/24/17 1801 DIS IN 08/26/17 [place] [id number] [place] [address]
--- NOTE | 2017-09-09 14:14 | DS ---
PATIENT:DURAN APNTOJA :56 MEDICAL RECORD: [id number] DISCHARGE SUMMARY ADMISSION DATE: 08/25/17 DISCHARGE DATE: 08/26/17 DISCHARGE DIAGNOSES: 1. Unstable angina. 2. Coronary artery disease. 3. PTCA and stent of LAD and RCA this admission. 4. History of transient ischemic attack. 5. Hyperlipidemia. HOSPITAL COURSE: Mr. Pantoja presents with unstable anginal symptomatology, found to have a 3-vessel coronary artery disease. Underwent successful PTCA and stent of the LAD and RCA. He was discharged home, as he is already on aspirin and Plavix with the addition of Pravachol to his medical regimen. He will follow up next Tuesday for PTCA and stent of the left circumflex. TRANSINT:[id number] Voice Confirmation ID: [id number] DOCUMENT ID: [id number] FLOYD MURPHY MD at 1414 CC: [id number] DICTATION DATE: 08/26/17 110 GREENHOUSE ASSISTANT: 08/26/17 1228 DIS IN 08/26/17 [place] [address] [place] [address]
== END 2017-08-26 12:58 | disposition home or self-care (01) | DRG 246 ==
LOC: D.M2 15:36 → OBSVTIME 15:36 → D.M2 15:36
PROVIDERS: ADMIT Internal Medicine Interventional Cardiology
PROC: 4A023N7 Measurement of Cardiac Sampling and Pressure, Left Heart, Percutaneous Approach (ICD-10-PCS; 2017-08-24)
PROC: B2111ZZ Fluoroscopy of Multiple Coronary Arteries using Low Osmolar Contrast (ICD-10-PCS; 2017-08-24)
PROC: B2151ZZ Fluoroscopy of Left Heart using Low Osmolar Contrast (ICD-10-PCS; 2017-08-24)
PROC: 027035Z Dilation of Coronary Artery, One Artery with Two Drug-eluting Intraluminal Devices, Percutaneous Approach (ICD-10-PCS; principal; 2017-08-24 15:00)
PROC: 027035Z Dilation of Coronary Artery, One Artery with Two Drug-eluting Intraluminal Devices, Percutaneous Approach (ICD-10-PCS; 2017-08-25)
DX: I21.4 Non-ST elevation (NSTEMI) myocardial infarction (principal); I25.110 Atherosclerotic heart disease of native coronary artery with unstable angina pectoris; K21.9 Gastro-esophageal reflux disease without esophagitis; Z86.73 Personal history of transient ischemic attack (TIA), and cerebral infarction without residual deficits; E78.5 Hyperlipidemia, unspecified; I10 Essential (primary) hypertension

== ENCOUNTER 2017-08-29 07:36 | Outpatient (CLI) | payer BC ==
--- NOTE | ~2017-08-29 | HEMODYNAMI ---
PATIENT:DURAN YARBROUGH MEDICAL RECORD: [id number] : 56 [address] [id number] ADMISSION DATE: 08/29/17 Generatedon:08/29/201712:28 Patient name: DURAN YARBROUGH Patient #: [id number] SSN: [id number] : 1960 Date of study: 08/29/2017 Page: Of Hemodynamic Procedure Report Patient Data Patient Demographics Procedure consent was obtained First Name: DURAN Gender: Male Last Name: LINNEA : 1960 Patient #: [id number] Age: 56 year(s) Race: SSN: [id number] Additional ID: [id number] Contact details Address: [address] [place] [address] State: [place] City: [place] Zip code: [address] Past Medical History Allergies: No known allergies Admission Admission Data Admission Date: 08/29/2017 Admission Time: 7:32 Admit Source: Other Room #: D.[facility] Lab Results Lab Result Date: 08/29/2017 Lab Result Time: 8:54 Biochemistry Name Units Result Min Max BUN mg/dl 20 --(----)*- 7 18 Creatinine mg/dl 0.9 --(-*--)-- 0.6 1.3 CBC Name Units Result Min Max Hematocrit % 44 --(*---)-- 42 54 Hemoglobin g/dl 14.6 --(-*--)-- 13.5 17.5 Procedure Procedure Types Cath Procedure PCI Procedure Coronary Stent Initial Miscellaneous Procedures Moderate Sedation up to 15 minutes Procedure Description Procedure Date Procedure Date: 08/29/2017 Procedure Start Time: 12:12 Procedure End Time: 12:28 Procedure Staff Name Function Stone Roa MD Performing Physician Magda Domingo RT Scrub Flip Cevallos RT Monitor Luis Orellana RN Nurse Procedure Data Cath Procedure Fluoroscopy Diagnostic fluoroscopy Total fluoroscopy Time: 3.9 time: 3.9 min min Diagnostic fluoroscopy Total fluoroscopy dose: 410 dose: 410 mGy mGy Contrast Material Contrast Material Type Amount (ml) Isovue 300 68 Entry Location Entry Primary Successful Side Size Upsize Upsize Entry Closure Succes sful Closure Location (Fr) 1 (Fr) 2 (Fr) Remarks Device Remarks Femoral Right 6 Fr Exoseal artery Short Estimated blood loss: 10 ml Procedure Complications No complications Procedure Medications Medication Administration Route Dosage 0.9% NaCl I.V. 100 ml/hr Oxygen NC 2 l/min Heparin Flush Bag added to field 2 bags (1000units/500ml NS) Lidocaine 2% added to field 20 Lidocaine 2% added to field 20 Versed I.V. 2 mg Fentanyl I.V. 100 mcg Versed I.V. 1 mg Heparin Bolus I.V. 4000 units Versed I.V. 1 mg Plavix P.O. 75 mg Hemodynamics Rest HGB: 14.6 (g/dl) Heart Rate: 53 (bpm) Snapshots Pre Cath Intra NCS Post Cath Vital Signs Time Heart Resp SPO2 etCO2 NIBP (mmHg) Rhythm Pain Sedation Rate (ipm) (%) (mmHg) Status Level (bpm) 12:03:03 55 11 100 0 165/90(136) NSR 0 (11) 10(A) , No pain 12:07:47 56 17 95 0 137/84(112) NSR 0 (11) 10(A) , No pain 12:12:30 52 14 95 0 136/84(110) NSR 0 (11) 10(A) , No pain 12:17:12 58 15 94 0 130/76(109) NSR 0 (11) 10(A) , No pain 12:21:57 62 15 96 0 138/78(115) NSR 0 (11) 10(A) , No pain 12:26:44 57 14 96 0 146/79(114) NSR 0 (11) 10(A) , No pain Medications Time Medication Route Dose Verified Delivered Reason Notes Effectiveness by by 12:01:10 0.9% NaCl I.V. 100 Luis Luis Per physician ml/hr Esteban Orellana RN RN 12:01:24 Oxygen NC 2 Luis Luis Per physician l/min Esteban Orellana RN RN 12:01:37 Heparin Flush added 2 Luis Luis used for Bag to bags Esteban Orellana procedure (1000units/500ml field RN RN NS) 12:01:55 Lidocaine 2% added 20ml Luis Luis for local to vial Esteban Orellana anesthetic field RN RN 12:02:03 Lidocaine 2% added 20ml Luis Luis for local to vial Esteban Orellana anesthetic field RN RN 12:11:10 Versed I.V. 2 mg Luis Luis for sedation Esteban Orellana RN RN 12:11:23 Fentanyl I.V. 100 Luis Luis for sedation mcg Esteban Orellana RN RN 12:13:28 Versed I.V. 1 mg Luis Luis for sedation Esteban Orellana RN RN 12:14:32 Heparin Bolus I.V. 4000 Luis Luis for units Esteban Orellana anticoagulation RN RN 12:24:15 Versed I.V. 1 mg Luis Luis for sedation Esteban Orellana RN RN 12:24:28 Plavix P.O. 75 mg Luis Luis for Esteban Orellana antiplatelet RN RN therapy Procedure Log Time Note 11:37:46 Informed consent obtained and on chart 11:39:25 Admit Source: Other 11:39:32 Luis Orellana RN sent for patient. Start room use. 11:39:36 Time tracking: Regular hours 11:39:40 Plan of Care:Hemodynamics will remain stable., Cardiac rhythm will remain stable., Comfort level will be maintained., Respiratory function will remain adequate., Patient/ family verbilizes understanding of procedure., Procedure tolerated without complication., Recovers from procedure without complications.. 12:01:10 0.9% NaCl 100 ml/hr I.V. was administered by Luis Orellana RN; Per physician; 12:01:24 Oxygen 2 l/min NC was administered by Luis Orellana RN; Per physician; 12:01:37 Heparin Flush Bag (1000units/500ml NS) 2 bags added to field was administered by Luis Orellana RN; used for procedure; 12:01:55 Lidocaine 2% 20ml vial added to field was administered by Luis Orellana RN; for local anesthetic; 12:02:01 Vital chart was started 12:02:03 Lidocaine 2% 20ml vial added to field was administered by Luis Orellana RN; for local anesthetic; 12:07:26 Patient [facility] to [facility] Alert and oriented. Tansferred to table in Supine position. 12:07:27 Warm blankets applied, and airam hugger turned on for patient comfort. 12:07:28 Correct patient and procedure confirmed by team. 12:07:28 ECG and BP/O2 sat monitors applied to patient. 12:07:30 Baseline sample Acquired. 12:07:34 Rhythm: sinus rhythm 12:07:47 H&P Date Dictated: 08/29/2017 Within 30 days and on chart.. 12:07:48 Pre-procedure instructions explained to patient. 12:07:51 Pre-op teaching completed and patient verbalized understanding. 12:07:53 Family in waiting room. 12:07:54 Patient NPO since Midnight. 12:08:14 Patient allergic to No known allergies 12:09:09 Is the patient allergic to Iodine/contrast media? No. 12:09:10 Is patient on blood thinner?Yes 12:09:13 ACC The patient was administered the following blood thiners within the last 24 hours: ACCPlavix 12:09:14 Patient diabetic? No. 12:09:16 Previous problem with sedation/anesthesia? No ? 12:09:18 Snore? Yes 12:09:19 Sleep apnea? No 12:09:20 Deviated septum? No 12:09:20 Opens mouth fully? Yes 12:09:21 Sticks out tongue? Yes 12:09:23 Airway obstruction? No ? 12:09:25 Dentures? Yes in tight 12:09:28 Pre procedure: right dorsailis pedis pulse 1+ Palpable, but thready & weak; easily obliterated 12:09:30 Patient pain scale 0/10 ?. 12:09:36 IV patent on arrival in left forearm with 0.9% NaCl at O. 12:10:04 Lab Result : BUN 20 mg/dl 12:10:04 Lab Result : Creatinine 0.9 mg/dl 12:10:04 Lab Result : Hemoglobin 14.6 g/dl 12:10:04 Lab Result : Hematocrit 44 % 12:10:08 Lab results completed and on chart. 12:10:11 Right groin area was prepped with chlora-prep and draped in sterile fashion 12:10:12 Alarms reviewed by R. N. 12:10:13 Sharps counted by scrub and verified by R.N. 12:10:15 Use device set Femoral PCI 12:10:16 Tegaderm 4 x 4 opened to sterile field. 12:10:17 Acist Manifold opened to sterile field. 12:10:17 Merit BasixCompak Inflation Kit opened to sterile field. 12:10:18 St Hector 260cm J .035 wire opened to sterile field. 12:10:23 Terumo 6Fr [place] Sheath opened to sterile field. 12:10:24 Acist Syringe opened to sterile field. 12:10:24 Acist Hand Control opened to sterile field. 12:10:24 Bag Decanter opened to sterile field. 12:10:25 Medline Cath Pack opened to sterile field. 12:10:31 Cordis 6FR XB 3.5 guide catheter opened to sterile field. 12:10:36 Physician arrived 12:10:37 --------ALL STOP TIME OUT------ 12:10:37 Final Timeout: patient, procedure, and site verified with staff and physician. All members of the team are in agreement. 12:10:39 Right groin site verified by team. 12:10:42 Physical assessment completed. ASA score P 2 - A patient with mild systemic disease as per Stone Roa MD. 12:10:47 Sedation plan: IV Moderate Sedation Versed, Fentanyl 12:11:10 Versed 2 mg I.V. was administered by Luis Orellana RN; for sedation; 12:11:23 Fentanyl 100 mcg I.V. was administered by Luis Orellana RN; for sedation; 12:11:58 Procedure started. 12:11:58 Full Disclosure recording started 12:12:01 Local anesthetic to right femoral artery with Lidocaine 2% by Stone Roa MD.INITIAL ACCESS ONLY 12:12:13 A 6 Fr Short sheath was inserted into the Right Femoral artery 12:12:30 [place] Sci PT Graphix J 300cm 0.014 guide wire opened to sterile field. 12:12:43 PERCUTANEOUS ENTRY 19GA needle opened to sterile field. 12:12:52 6 Fr xb 3.5 guide catheter was inserted over the wire 12:13:28 Versed 1 mg I.V. was administered by Luis Orellana RN; for sedation; 12:14:24 PT GRAPHIX wire advanced. 12:14:32 Heparin Bolus 4000 units I.V. was administered by Luis Orellana RN; for anticoagulation; 12:17:56 Wire removed. unable to cross lesion. 12:18:57 Vieira Fielder XT J 300cm 0.014 guide wire opened to sterile field. 12:19:12 FIELDER wire advanced. 12:20:23 Wire advanced across lesion. 12::45 Inflation Number: 1 A [place] OTW 2.25 x 30 stent was prepped and advanced across the Mid CX. The stent was deployed at 15 JOSHUA for 0:10 (min:sec). 12:: Stent catheter was removed intact over wire. 12:: Wire removed. 12:: Guide catheter removed. 12::35 Cordis 6Fr Exoseal opened to sterile field. 12::42 Sheath removed intact; hemostasis achieved with Exoseal to the Right Femoral artery. 12::43 Procedure ended.(Physican Out) 12:24:15 Versed 1 mg I.V. was administered by Luis Orellana RN; for sedation; 12::28 Plavix 75 mg P.O. was administered by Luis Orellana RN; for antiplatelet therapy; 12::41 Fluoroscopy time 03.90 minutes. 12:25:45 Flurop Dose total: 410 12:25:45 Fluoroscopy dose: 410 mGy 12:25:51 Contrast amount:Isovue 300 68ml. 12:25:54 Sharps counted by scrub and verified by R.N. 12:25:56 Insertion/operative site no bleeding no hematoma. 12:25:59 Post-op/insertion site Right Femoral artery dressed using a 4 x 4 and Tegaderm. 12:26:12 Post right femoral artery:stable, soft, clean and dry 12::18 Post Procedure Pulses reassessed and unchanged 12::20 Post-procedure physical assessment completed. ASA score P 2 - A patient with mild systemic disease as per Stone Roa MD. 12:26:23 Post procedure rhythm: unchanged. 12::25 Estimated blood loss: 10 ml 12::27 Post procedure instruction explained to patient.Patient verbalizes understanding. 12::27 Patient needs reinforcement of post procedure teaching. 12::37 Procedure and supply charges have been captured, reviewed, submitted and are correct. 12::41 Procedure Complication : No complications 12::43 Vital chart was stopped 12:27:44 See physician's report for complete and final results. 12:28:01 Report given to PCU. 12:28:03 Patient transfered to PCU with Stretcher. 12:28:06 Procedure ended. 12:28:06 Full Disclosure recording stopped 12:28:11 End room use (Document Last) Intervention Summary Intervention Notes Time ActionType Lesion and Equipment Action# Pressure Duration Attributes Used 12:20:45 Place stent Mid CX [place] OTW 1 15 00:10 2.25 x 30 stent Device Usage Item Name Manufacture Quantity Catalog Number Hospital Part Current Mini mal Lot# / Charge Number Stock Stock Serial# Code Tegaderm 4 x 3M 1 1626W 610182 326942 914158 5 4 Acist Acist 1 75323 327943 419447 024547 5 Manifold Medical Systems [place] Merit Merit 1 [id number] 779635 404423 794459 15 BasixCompak [address] Infl[address] Kit [address] Hector St Hector 1 004876 668477 124578 444013 30 260cm J .035 wire Terumo 6Fr Terumo 1 [id number] 377187 704265 727423 40 Wapiti Sheath Acist Acist 1 35306 910146 266185 588373 20 Syringe Medical Systems Inc Acist Hand Acist 1 32269 128882 967533 103516 5 Control Medical Systems Inc Bag Decanter Microtek 1 2002S 832432 89981 293442 5 Medical Inc. Medline Cath Cardinal 1 [id number] 876560 39617 028940 5 Bread Health Cordis 6FR Cardinal 1 [id number] 227541 897702 006371 2 XB 3.5 guide Health catheter [place] Sci [place] 1 [id number] 329116 838489 873536 5 PT Graphix J Scientific 300cm 0.014 guide wire PERCUTANEOUS Cook Medical 1 [id number] 006708 960950 5 ENTRY 19GA needle Vieira Vieira 1 [id number] 241054 672122 766376 5 Fielder XT J Vascular 300cm 0.014 guide wire [place] OTW Medtronic 1 [id number] 561885 65845 249516 5 [id number] 2.25 x 30 stent Cordis 6Fr Cardinal 1 EX600 538142 827489 312339 10 [facility] SoBiz10 Signature Audit Ogema Stage Time Signature Unsigned Intra-Procedure 08/29/2017 Flip Cevallos 12:28:32 PM RT(R) Signatures Monitor : Flip Cevallos RT Signature : Date : Time : [place] [address] [facility] [place] [address]
--- NOTE | 2017-08-29 07:30 | NUR ---
RECIEVED FROM [facility] BY EMS. OREINTED TO ROOM. CALL LIGHT IN REACH. WILL CONT. PLAN OF CARE.
[~2017-08-29 07:36] MED LIST: ASPIRIN81 MG PO; CARAFATE1 G PO; CELEXA20 MG PO; HYDROCODONE-APA1 TAB PO; LIDOCAINE 2 %100 ML PO; MECLIZINE HCL25 MG PO; NORVASC10 MG PO; PLAVIX75 MG PO; PRAVACHOL20 MG PO; PROTONIX40 MG PO; TOPROL XL50 MG PO; VALIUM5 MG PO
[2017-08-29 07:43] VITALS: BP 124/75; BMI 31.3
[2017-08-29 08:39] VITALS: BP 124/75
[2017-08-29 09:04] LABS: HEMOGLOBIN 14.6 g/dL (13.5-17.5); LYMPHOCYTES 28.7 % (15-50); MCH 30.4 pg (26.0-34.0); MCHC 33.2 g/dL (31.0-37.0); MCV 91.5 fL (80.0-100.0); MEAN PLATELET VOLUME 8.9 fL (7.4-10.4); NEUTROPHILS 58.1 % (40-80); PLATELET COUNT 281 10x3/uL (130-400); RBC 4.81 10x6/uL (4.20-6.10); RDW 13.6 % (11.5-14.5); WBC 9.6 10x3/uL (4.8-10.8)
[2017-08-29 09:14] LABS: CALC OSMOLALITY 285 mosm/kg (275-300); CALCIUM 8.3 mg/dL (8.5-10.1); CARBON DIOXIDE 28.8 mmol/L (21.0-32.0); CHLORIDE - SERUM 107 mmol/L (98-107); CREATININE - SERUM 0.9 mg/dL (0.6-1.3); GLUCOSE 99 mg/dL (74-106); POTASSIUM - SERUM 4.5 mmol/L (3.5-5.1); SODIUM 142 mmol/L (136-145); UREA NITROGEN 20 mg/dL (7-18); eGFR NON AFRICAN AMERICAN > 90 mL/min (90-120)
--- NOTE | 2017-08-29 11:57 | NUR ---
PRE-OPS GIVEN. TO SALES REPRESENTATIVE ELECTRIC SERVICE BY BED.
--- NOTE | 2017-08-29 12:43 | NUR ---
BACK FROM FIRE OBSERVER. VS WNL. RIGHT GROIN STABLE WITHOUT BLEEDING OR HEMATOMA NOTED. OLD BRUICING TO SITE NOTED FROM LAST WEEKS PROCEDURE. WILL MONITOR.
[2017-08-29 16:04] VITALS: BP 133/69
--- NOTE | 2017-08-29 16:39 | NUR ---
BED REST UP. GROIN STABLE. IV AND TELEMETRY DCD. DC PLANS GIVEN. UNDERSTANDING VOICED.
--- NOTE | 2017-09-09 14:14 | DS ---
PATIENT:DURAN YARBROUGH :56 MEDICAL RECORD: [id number] DISCHARGE SUMMARY ADMISSION DATE: 08/29/17 DISCHARGE DATE: 08/29/17 DIAGNOSES: 1. Angina. 2. Coronary artery disease. 3. Percutaneous transluminal coronary angioplasty stent of left circumflex this admission. HISTORY AND HOSPITAL COURSE: This is a gentleman who presents with anginal symptomatology. He has a known disease of left circumflex, underwent successful percutaneous transluminal coronary angioplasty stent of the left circumflex, discharged home with no change in medications as he is already on aspirin and Plavix. Will follow up with [facility] in 1 month. TRANSINT:[id number] Voice Confirmation ID: [id number] DOCUMENT ID: [id number] FLOYD MURPHY MD at 1414 CC: [id number] DICTATION DATE: 08/29/17 1224 TRIMMING CUTTER: 08/29/17 1234 DEP CLI 08/29/17 [place] [address] [place] [address]
--- NOTE | 2017-09-09 14:14 | OP ---
PATIENT NAME: DURAN YARBROUGH MEDICAL RECORD: [id number] :56 LOCATION:DFOUZIA ADMISSION DATE: SURGEON: FLODY MURPHY MD DATE OF OPERATION: 08/29/2017 PROCEDURES: 1. PTCA stent of the left circumflex. 2. Selective coronary angiography. INDICATION: Angina and coronary artery disease. PROCEDURE IN DETAIL: After informed consent was obtained after a detailed explanation of the risks and benefits as well as alternative therapies, the patient elected to proceed with angiogram and angioplasty. The right femoral area was prepped and draped in normal sterile fashion. Right femoral artery was cannulated via modified Seldinger technique with placement of a 6-Paraguayan sheath. All catheters exchanged through this sheath. FINDINGS: The left circumflex has 95% stenosis addressed with a 2.25 x 30 mm Wilberto. Result was 0% residual stenosis. OVERALL IMPRESSION: Successful percutaneous transluminal coronary angioplasty stent of the left circumflex going from 95% initial stenosis to 0% residual. TRANSINT:[id number] Voice Confirmation ID: [id number] DOCUMENT ID: [id number] FLOYD MURPHY MD at 1414 CC: [id number] DICTATION DATE: 08/29/17 1225 PROJECT ADMIN: 08/29/17 1331 DEP CLI 08/29/17 [place] [id number] [place] [address]
== END 2017-08-29 16:41 | disposition home or self-care (01) ==
LOC: OBSVTIME → D.OPS 07:36 → EDSTATUS 14:15 → D.OPS 16:41 → D.M2 16:41
PROVIDERS: Internal Medicine Interventional Cardiology
DX: I25.110 Atherosclerotic heart disease of native coronary artery with unstable angina pectoris (principal); Z95.5 Presence of coronary angioplasty implant and graft; Z87.891 Personal history of nicotine dependence; I10 Essential (primary) hypertension

== ENCOUNTER 2017-10-19 13:58 | Observation (INO) | payer BC ==
[~2017-10-19] VITALS: Ht 175.3 cm; Wt 100.5 kg
--- NOTE | ~2017-10-19 | OP ---
PATIENT NAME: DURAN YARBROUGH MEDICAL RECORD: [id number] :56 LOCATION:D.M2 D.2122 ADMISSION DATE:10/19/17 SURGEON: FLOYD MURPHY MD DATE OF OPERATION: 10/21/2017 DATE OF SERVICE: 10/21/2017 PROCEDURES: 1. PTCA stent LAD. 2. Selective coronary angiography. INDICATION: Angina and coronary artery disease. PROCEDURE IN DETAIL: After informed consent was obtained and after a detailed explanation of risks, benefits as well as alternative therapies, the patient elected to proceed with angiogram and angioplasty. The right femoral area was prepped and draped in normal sterile fashion. Right femoral artery was cannulated via modified Seldinger technique with placement of 6-Greek sheath. All catheters exchanged through this sheath. FINDINGS: The left anterior descending has 80% stenosis proximally. This was addressed with a 3.0 x 22 mm [place] stent. Result was 0% residual stenosis. OVERALL IMPRESSION: Successful percutaneous transluminal coronary angioplasty stent of the left anterior descending going from 80% initial stenosis to 0% residual. TRANSINT:[id number] Voice Confirmation ID: [id number] DOCUMENT ID: [id number] FLOYD MURPHY MD at 1323 CC: [id number] DICTATION DATE: 10/21/17 1132 RESIDENT PROGRAM SPECIALIST: 10/21/17 1220 DIS IN 10/21/17 [place] [address] [place] [address]
--- NOTE | ~2017-10-19 | DS ---
PATIENT:DURAN PANTOJA :56 MEDICAL RECORD: [id number] DISCHARGE SUMMARY ADMISSION DATE: 10/19/17 DISCHARGE DATE: 10/21/17 DIAGNOSES: 1. Angina. 2. Coronary artery disease. 3. Percutaneous transluminal coronary angioplasty stent right coronary artery and left anterior descending this admission. HOSPITAL COURSE: Mr. Pantoja presents with increasing anginal symptomatology, underwent successful PTCA stent of the RCA as well as the LAD, discharged home with no change in his medications as he is already on aspirin and Plavix. He will follow up with [facility] in 1 month. TRANSINT:[id number] Voice Confirmation ID: [id number] DOCUMENT ID: [id number] FLOYD MURPHY MD at 1323 CC: [id number] DICTATION DATE: 10/21/17 1131 LORRY WEIGHER: 10/21/17 1655 DIS IN 10/21/17 [facility] [address] [place] [address]
--- NOTE | ~2017-10-19 | HEMODYNAMI ---
PATIENT:DURAN YARBROUGH MEDICAL RECORD: [id number] : 56 [address] [id number] ADMISSION DATE: 10/19/17 Generatedon:10/20/201713:10 Patient name: DURAN YARBROUGH Patient #: [id number] SSN: [id number] : 1960 Date of study: 10/20/2017 Page: Of Hemodynamic Procedure Report Patient Data Patient Demographics Procedure consent was obtained First Name: DURAN Gender: Male Last Name: LINNEA : 1960 Patient #: [id number] Age: 57 year(s) Race: SSN: [id number] Additional ID: [id number] Contact details [address]: [address] [place] [address] State: [place] City: [place] Zip code: [address] Past Medical History Allergies: No known allergies Admission Admission Data Admission Date: 10/19/2017 Admission Time: 13:58 Room #: [facility] Lab Results Lab Result Date: 10/20/2017 Lab Result Time: 0:00 Biochemistry Name Units Result Min Max BUN mg/dl 14 --(--*-)-- 7 18 Creatinine mg/dl 0.8 --(-*--)-- 0.6 1.3 CBC Name Units Result Min Max Hemoglobin g/dl 15.3 --(-*--)-- 13.5 17.5 Procedure Procedure Types Cath Procedure Diagnostic Procedure LHC LHC w/Coronaries w/Grafts PCI Procedure Coronary Stent Coronary Stent Initial Coronary Stent Additional x2 Miscellaneous Procedures Moderate Sedation up to 30 minutes Procedure Description Procedure Date Procedure Date: 10/20/2017 Procedure Start Time: 12:37 Procedure End Time: 13:10 Procedure Staff Name Function Flip Cevallos RT Monitor Stone Roa MD Performing Physician Magda Domingo RT Scrub Andreia House RN Nurse Procedure Data Cath Procedure Contrast Material Contrast Material Type Amount (ml) Isovue 300 143 Entry Location Entry Primary Successful Side Size Upsize Upsize Entry Closure Succes sful Closure Location (Fr) 1 (Fr) 2 (Fr) Remarks Device Remarks Femoral Right 7 Fr Exoseal artery Short Estimated blood loss: 10 ml Diagnostic catheters Device Type Used For End Catheter Placement DIAGNOSTIC Pigtail 5Fr Procedure catheter ([id number]) DIAGNOSTIC JL 4.0 5Fr Procedure catheter ([id number]) Procedure Complications No complications Procedure Medications Medication Administration Route Dosage Oxygen NC 2 l/min Lidocaine 2% added to field 20 Heparin Flush Bag added to field 2 bags (1000units/500ml NS) 0.9% NaCl I.V. 100 ml/hr Versed I.V. 2 mg Fentanyl I.V. 100 mcg Heparin Bolus I.V. 4000 units Versed I.V. 2 mg Fentanyl I.V. 100 mcg Morphine I.V. 4 mg Hemodynamics Rest HGB: 15.3 (g/dl) Heart Rate: 54 (bpm) Snapshots Pre Cath Intra NCS Post Cath Vital Signs Time Heart Resp SPO2 etCO2 NIBP (mmHg) Rhythm Pain Sedation Rate (ipm) (%) (mmHg) Status Level (bpm) 12:22:47 49 18 98 0 190/95(151) NSR 0 (11) , 10(A) No pain 12:28:15 50 19 98 0 174/87(133) NSR 0 (11) , 10(A) No pain 12:33:03 50 18 97 0 171/88(138) NSR 0 (11) , 10(A) No pain 12:37:50 50 17 97 0 161/88(127) NSR 0 (11) , 10(A) No pain 12:42:37 54 16 96 0 175/85(133) NSR 0 (11) , 10(A) No pain 12:47:19 61 16 94 0 155/93(126) NSR 0 (11) , 10(A) No pain 12:52:02 63 14 96 0 168/97(141) NSR 0 (11) , 10(A) No pain 12:57:34 68 15 98 0 189/97(157) NSR 0 (11) , 10(A) No pain 13:02:25 66 12 99 0 205/112(168) NSR 8 (11) , 10(A) Utterly horrible 13:07:16 63 18 99 0 189/118(173) NSR 8 (11) , 10(A) Utterly horrible Medications Time Medication Route Dose Verified Delivered Reason Notes Effectiveness by by 12:31:13 Oxygen NC 2 Stone Stone used for l/min Janina Roa MD procedure 12:31:21 Lidocaine 2% added 20ml Stone Stone for local to vial Janina Roa MD anesthetic field 12:31:29 Heparin Flush added 2 Stone Stone used for Bag to bags Janina Roa MD procedure (1000units/500ml field NS) 12:31:38 0.9% NaCl I.V. 100 Stone Buffie Per physician ml/hr Janina House RN 12:39:45 Versed I.V. 2 mg Stone Buffie for sedation Janina House RN 12:39:53 Fentanyl I.V. 100 Stone Buffie for sedation mcg Janina House RN 12:44:00 Heparin Bolus I.V. 4000 Stone Buffie for verifi ed units Janina House RN anticoagulation with dr roa 12:45:30 Versed I.V. 2 mg Stone Buffie for sedation Janina House RN 12:45:34 Fentanyl I.V. 100 Stone Buffie for sedation mcg Janina House RN 13:08:49 Morphine I.V. 4 mg Stone Buffie for chest pain Janina House RN Procedure Log Time Note 11:53:24 Time tracking: Regular hours 11:53:28 Plan of Care:Hemodynamics will remain stable., Cardiac rhythm will remain stable., Comfort level will be maintained., Respiratory function will remain adequate., Patient/ family verbilizes understanding of procedure., Procedure tolerated without complication., Recovers from procedure without complications.. 11:58:06 Procedure type changed to Cath procedure, Diagnostic procedure, LHC, LHC w/Coronaries w/Grafts, PCI procedure, Coronary Stent, Coronary Stent Initial, Coronary Stent Additional x2, Miscellaneous Procedures, Moderate Sedation up to 30 minutes 11:59:07 Lab Result : BUN 14 mg/dl 11:59:07 Lab Result : Creatinine 0.8 mg/dl 11:59:07 Lab Result : Hemoglobin 15.3 g/dl 12:04:48 Flip Cevallos RT(R) sent for patient. Start room use. 12:15:18 Patient received from Med II to CCL 1 Alert and oriented. Tansferred to table in Supine position. 12:15:19 Warm blankets applied, and airam hugger turned on for patient comfort. 12:15:20 Correct patient and procedure confirmed by team. 12::21 Signed procedure consent form obtained from patient. 12:15:22 ECG and BP/O2 sat monitors applied to patient. 12:20:50 Vital chart was started 12:21:03 Rhythm: sinus bradycardia 12:21:07 Full Disclosure recording started 12::08 Baseline sample Acquired. 12::47 Pre-procedure instructions explained to patient. 12::47 Pre-op teaching completed and patient verbalized understanding. 12:21:51 Family in patients room. 12:21:53 Patient NPO since Midnight. 12:22:00 Patient allergic to No known allergies 12:22:03 Is the patient allergic to Iodine/contrast media? No. 12:22:04 Is patient on blood thinner?Yes 12:22:08 ACC The patient was administered the following blood thiners within the last 24 hours: ACCPlavix 12:22:15 Previous problem with sedation/anesthesia? No ? 12:22:19 Snore? Yes 12:22:20 Patient diabetic? No. 12:22:20 Sleep apnea? No 12:22:21 Deviated septum? No 12:22:26 Opens mouth fully? Yes 12:22:27 Sticks out tongue? Yes 12:22:29 Airway obstruction? No ? 12:22:38 Dentures? Yes IN TIGHT 12:22:42 Pre procedure: right dorsailis pedis pulse 2+ Normal; easily identifiable; not easily obliterated 12:22:45 Patient pain scale 0/10 ?. 12:22:54 IV patent on arrival in left forearm with 0.9% NaCl at O. 12:23:09 Lab results completed and on chart. 12:23:12 Right groin area was prepped with chlora-prep and draped in sterile fashion 12:23:24 Alarms reviewed by R. N. 12:23:24 Sharps counted by scrub and verified by R.N. 12::43 --------ALL STOP TIME OUT------ 12::44 Final Timeout: patient, procedure, and site verified with staff and physician. All members of the team are in agreement. 12:23:46 Right groin site verified by team. 12:23:49 Physical assessment completed. ASA score P 2 - A patient with mild systemic disease as per Stone Roa MD. 12:24:01 Sedation plan: IV Moderate Sedation Medication:Versed, Fentanyl 12:31:13 Oxygen 2 l/min NC was administered by Stone Roa MD; used for procedure; 12:31:21 Lidocaine 2% 20ml vial added to field was administered by Stone Roa MD; for local anesthetic; 12:31:29 Heparin Flush Bag (1000units/500ml NS) 2 bags added to field was administered by Stone Roa MD; used for procedure; 12:31:38 0.9% NaCl 100 ml/hr I.V. was administered by Andreia House RN; Per physician; 12:34:10 Use device set Femoral Dx 12:34:12 ACIST Syringe (06501) opened to sterile field. 12:34:14 Bag Decanter (2002S) opened to sterile field. 12:34:15 ACIST Hand Control (90946) opened to sterile field. 12:34:16 ACIST Manifold (51974) opened to sterile field. 12:34:17 Tegaderm 4 x 4 (1626W) opened to sterile field. 12:34:19 Medline Cath Pack ([id number]) opened to sterile field. 12:34:23 DIAGNOSTIC WIRE .035 260cm J wire (240377) opened to sterile field. 12:35:38 Zero performed for pressure channel P1 12:36:06 SHEATH 7FR [place] (MUZ193) opened to sterile field. 12:36:12 INFLATOR Merit BasixCompak (NQ1196) opened to sterile field. 12:36:23 GUIDE 7FR AR 2.0 SH catheter ([id number]) opened to sterile field. 12:36:34 Procedure started. 12:37:40 Local anesthetic to right femoral artery with Lidocaine 2% by Stone Roa MD.INITIAL ACCESS ONLY 12:37:55 A 7 Fr Short sheath was inserted into the Right Femoral artery 12:38:31 A DIAGNOSTIC Pigtail 5Fr catheter ([id number]) was advanced over the wire and used for Procedure. 12:38:37 Injector settings: Ml/sec: 10, Volume: 20, 12:38:38 LV gram done using SARMIENTO 12:38:51 EF : 55 % 12:38:53 Catheter removed. 12:39:04 A DIAGNOSTIC JL 4.0 5Fr catheter ([id number]) was advanced over the wire and used for Procedure. 12:39:45 Versed 2 mg I.V. was administered by Andreia House RN; for sedation; 12:39:45 LCA angiography performed. 12:39:53 Fentanyl 100 mcg I.V. was administered by Andreia House RN; for sedation; 12:40:36 Catheter removed. 12:41:00 7 Fr AR2 SH guide catheter was inserted over the wire 12:41:38 RCA angiography performed. 12:43:35 Wire advanced across lesion. 12:43:48 WHISPER 190cm wire ([id number]) opened to sterile field. 12:44:00 Heparin Bolus 4000 units I.V. was administered by Andreia House RN; for anticoagulation; verified with dr roa 12:44:06 WHISPER wire advanced. 12:45:30 Versed 2 mg I.V. was administered by Andreia House RN; for sedation; 12:45:34 Fentanyl 100 mcg I.V. was administered by Andreia House RN; for sedation; 12:46:48 Inflation Number: 1 A CAYETANO RX 2.5 x 18 stent ([id number]) was prepped and advanced across the R PDA. The stent was deployed at 13 JOSHUA for 0:10 (min:sec). 12:47:02 Inflation number: 2 The stent balloon was then re-inflated across the R PDA to 17 JOSHUA for 0:10 (min:sec). 12:47:42 Wire removed. 12:47:43 Balloon removed over the wire. 12:47:55 CHOICE PT Extra Support 182cm wire ([id number]) opened to sterile field. 12:48:33 CHOICE PT ES wire advanced. 12:48:38 Wire advanced across lesion. 12:50:29 Inflation number: 1 A EUPHORA 2.0 x 20 Balloon ([id number]) was prepped and advanced across the 1st RPL, then inflated to 15 JOSHUA for 0:10 (min:sec). 12:50:51 Inflation number: 2 The EUPHORA 2.0 x 20 Balloon ([id number]) was reinflated across the 1st RPL, to 17 JOSHUA for 0:10 (min:sec). 12:53:46 Inflation Number: 3 A CAYETANO RX 2.5 x 15 stent ([id number]) was prepped and advanced across the 1st RPL. The stent was deployed at 11 JOSHAU for 0:10 (min:sec). 12:54:21 Stent catheter was removed intact over wire. 12:56:03 Inflation Number: 1 A CAYETANO RX 3.5 x 18 stent ([id number]) was prepped and advanced across the Mid RCA. The stent was deployed at 11 JOSHUA for 0:10 (min:sec). 12:56:29 Stent catheter was removed intact over wire. 12:56:34 Wire removed. 12:56:34 Guide catheter removed. 12:56:48 EXOSEAL 7Fr (EX700) opened to sterile field. 12:57:06 Sheath removed intact; hemostasis achieved with Exoseal to the Right Femoral artery. 12:57:09 Procedure ended.(Physican Out) 12:58:07 Contrast amount:Isovue 300 143ml. 13:01:11 Post-op/insertion site Right Femoral artery dressed using a 4 x 4 and Tegaderm. 13:01:36 Post procedure rhythm: unchanged. 13:01:38 Estimated blood loss: 10 ml 13:01:40 Post procedure instruction explained to patient.Patient verbalizes understanding. 13:01:40 Patient needs reinforcement of post procedure teaching. 13:05:22 FEMSTOP Gold ([id number]) opened to sterile field. 13:08:46 Femstop placed over the right femoral artery at 220 mmHg. Hemostasis achieved. 13:08:49 Morphine 4 mg I.V. was administered by Andreia House RN; for chest pain; 13:08:54 Post procedure: right dorsailis pedis pulse 2+ Normal; easily identifiable; not easily obliterated. 13:09:02 Post-procedure physical assessment completed. ASA score P 2 - A patient with mild systemic disease as per Stone Roa MD. 13:09:47 Procedure and supply charges have been captured, reviewed, submitted and are correct. 13:09:50 Procedure Complication : No complications 13:09:54 Vital chart was stopped 13:09:55 See physician's report for complete and final results. 13:09:57 Report given to PCU. 13:10:00 Patient transfered to PCU with Bed. 13:10:03 Procedure ended. 13:10:03 Full Disclosure recording stopped 13:10:13 End room use (Document Last) Intervention Summary Intervention Notes Time ActionType Lesion and Equipment Used Action# Pressure Duration Attributes 12:46:48 Place stent R PDA CAYETANO RX 2.5 x 1 13 00:10 18 stent ([id number]) 12:47:02 Reinflate R PDA CAYETANO RX 2.5 x 2 17 00:10 stent 18 stent balloon ([id number]) 12:50:29 Inflate 1st RPL EUPHORA 2.0 x 1 15 00:10 balloon 20 Balloon ([id number]) 12:50:51 Reinflate 1st RPL EUPHORA 2.0 x 2 17 00:10 balloon 20 Balloon ([id number]) 12:53:46 Place stent 1st RPL CAYETANO RX 2.5 x 3 11 00:10 15 stent ([id number]) 12:56:03 Place stent Mid RCA CAYETANO RX 3.5 x 1 11 00:10 18 stent ([id number]) Device Usage Item Name Manufacture Quantity Catalog Number Hospital Part Current M inimal Lot# / Charge Number Stock Stock Serial# Code ACIST Syringe Acist 1 99640 690204 266732 634030 2 0 (95797) Medical Systems Inc Bag Decanter Microtek 1 2001S 459087 33422 091854 5 (2001S) Medical Inc. ACIST Hand Acist 1 95348 643330 009313 426118 5 Control Medical (34743) Systems Inc ACIST Manifold Acist 1 11711 910330 610326 614535 5 (72779) Medical Systems Inc Tegaderm 4 x 4 3M 1 1626W 027680 792658 512898 5 (1626W) Medline Cath Cardinal 1 [id number] 891106 [address] [facility] ([id number]) DIAGNOSTIC St Hector 1 187837 893188 698368 364950 3 0 WIRE .035 260cm J wire (680074) SHEATH 7FR Terumo 1 TAV354 937251 807622 155114 5 [place] (BUQ833) INFLATOR Merit Merit 1 AR9972 351393 073668 710119 1 5 PlasmaSi (BO7745) GUIDE 7FR AR Medtronic 1 [id number] 355851 388589 902153 0 2.0 SH catheter ([id number]) DIAGNOSTIC Cardinal 1 [id number] 318206 112274 941630 5 Pigtail 5Fr Health catheter (156218U) DIAGNOSTIC JL Cardinal 1 661545V 046562 942179 912632 1 0 4.0 5Fr Health catheter (439431D) WHISPER 190cm [place] 1 [id number] 407904 497442 096650 5 wire Vascular ([id number]) CAYETANO RX 2.5 x Medtronic 1 [id number] 159203 6770433 919098 5 [id number] 18 stent ([id number]) CHOICE PT [place] 1 [id number] 654869 902101 531734 5 Extra Support Scientific 182cm wire ([id number]) EUPHORA 2.0 x Medtronic 1 [id number] 414820 307075 065034 5 [id number] 20 Balloon ([id number]) CAYETANO RX 2.5 x Medtronic 1 [id number] 631561 0616739 376225 5 [id number] 15 stent ([id number]) CAYETANO RX 3.5 x Medtronic 1 [id number] 941862 0756078 888839 5 [id number] 18 stent ([id number]) EXOSEAL 7Fr Cardinal 1 EX700 180375 242687 311011 5 (EX700) Health FEMSTOP Gold [facility] [place] 1 L28081 908061 443059 182761 5 (F69504) Signature Audit [place] Stage Time Signature Unsigned Intra-Procedure 10/20/2017 Magda Domingo 1:10:34 PM RT(R) Signatures Monitor : Flip Cevallos RT Signature : Date : Time : [facility] [address] [place] [address]
--- NOTE | ~2017-10-19 | HEMODYNAMI ---
PATIENT:DURAN YARBROUGH MEDICAL RECORD: [id number] : 56 LOCATION:[place] [address] ADMISSION DATE: 10/19/17 Generatedon:10/21/201711:35 Patient name: DURAN YARBROUGH Patient #: [id number] SSN: [id number] : 1960 Date of study: 10/21/2017 Page: Of Hemodynamic Procedure Report Patient Data Patient Demographics Procedure consent was obtained First Name: DURAN Gender: Male Last Name: LINNEA : 1960 Patient #: [id number] Age: 57 year(s) Race: SSN: [id number] Additional ID: [id number] Contact details Address: [address] [place] [address] State: [place] City: [place] Zip code: [address] Past Medical History Allergies: No known allergies Admission Admission Data Admission Date: 10/19/2017 Admission Time: 13:58 Room #: [facility] Lab Results Lab Result Date: 10/20/2017 Lab Result Time: 0:00 Biochemistry Name Units Result Min Max BUN mg/dl 14 --(--*-)-- 7 18 Creatinine mg/dl 0.8 --(-*--)-- 0.6 1.3 CBC Name Units Result Min Max Hemoglobin g/dl 15.3 --(-*--)-- 13.5 17.5 Procedure Procedure Types Cath Procedure Diagnostic Procedure PCI Procedure Coronary Stent Coronary Stent Initial Miscellaneous Procedures Moderate Sedation up to 15 minutes Procedure Description Procedure Date Procedure Date: 10/21/2017 Procedure Start Time: 11:23 Procedure End Time: 11:32 Procedure Staff Name Function Stone Roa MD Performing Physician Bebe Cyr RT Monitor Eloisa Garcia RT Scrub Adrienne Reyes RN Nurse Silas Cheek RN Certified Wellness Program Coordinator Procedure Data Cath Procedure Fluoroscopy Diagnostic fluoroscopy Total fluoroscopy Time: 1.2 time: 1.2 min min Diagnostic fluoroscopy Total fluoroscopy dose: 217 dose: 217 mGy mGy Contrast Material Contrast Material Type Amount (ml) Isovue 300 22 Entry Location Entry Primary Successful Side Size Upsize Upsize Entry Closure Succes sful Closure Location (Fr) 1 (Fr) 2 (Fr) Remarks Device Remarks Radial Right 6 Fr Exoseal artery Short Estimated blood loss: 10 ml Procedure Complications No complications Procedure Medications Medication Administration Route Dosage Oxygen NC 2 l/min Lidocaine 2% added to field 20 Heparin Flush Bag added to field 2 bags (1000units/500ml NS) 0.9% NaCl I.V. 100 ml/hr Versed I.V. 2 mg Fentanyl I.V. 100 mcg Fentanyl I.V. 50 mcg Versed I.V. 1 mg Heparin Bolus I.V. 4000 units Hemodynamics Rest Pre Cath Intra NCS Post Cath Vital Signs Time Heart Resp SPO2 NIBP (mmHg) Rhythm Pain Sedation Rate (ipm) (%) Status Level (bpm) 11:16:25 58 16 98 194/99(155) NSR 0 (11) 10(A) , No pain 11:20:55 57 14 97 186/93(148) NSR 0 (11) 10(A) , No pain 11:25:23 57 16 96 178/91(142) NSR 0 (11) 10(A) , No pain 11:29:51 67 16 98 160/88(133) NSR 0 (11) 9(A) , No pain 11:33:47 53 16 96 176/86(133) NSR 0 (11) 10(A) , No pain Medications Time Medication Route Dose Verified Delivered Reason Notes Effectiveness by by 11:12:34 Oxygen NC 2 Stone Deleon used for l/min Janina Reyes RN procedure 11:12:42 Lidocaine 2% added 20ml Stone Ritter for local to vial Janina Roa MD anesthetic field 11:12:51 Heparin Flush added 2 Stone Stone used for Bag to bags Janina Roa MD procedure (1000units/500ml field NS) 11:13:00 0.9% NaCl I.V. 100 Stone Deleon Per physician ml/hr Janina Reyes RN 11:17:12 Versed I.V. 2 mg Stone Deleon for sedation Janina Reyes RN 11:17:18 Fentanyl I.V. 100 Stone Deleon for sedation mcg Janina Reyes RN 11:22:36 Fentanyl I.V. 50 Stone Deleon for sedation mcg Janina Reyes RN 11:22:45 Heparin Bolus I.V. 4000 Stone Deleon for verifi ed units Janina Reyes RN anticoagulation by dr. roa 11:22:45 Versed I.V. 1 mg Stone Deleon for sedation Janina Reyes RN Procedure Log Time Note 11:07:30 Diagnostic Cath status Elective 11:07:33 Silas Cheek RN sent for patient. Start room use. 11:07:34 Time tracking: Regular hours 11:07:41 Plan of Care:Hemodynamics will remain stable., Cardiac rhythm will remain stable., Comfort level will be maintained., Respiratory function will remain adequate., Patient/ family verbilizes understanding of procedure., Procedure tolerated without complication., Recovers from procedure without complications.. 11:07:52 Patient received from Med II to CCL 2 Alert and oriented. Tansferred to table in Supine position. 11:07:53 Warm blankets applied, and airam hugger turned on for patient comfort. 11:07:53 Correct patient and procedure confirmed by team. 11:07:55 Signed procedure consent form obtained from patient. 11:07:58 ECG and BP/O2 sat monitors applied to patient. 11:08:04 H&P Date Dictated: 10/20/2017 Within 30 days and on chart.. 11:08:07 Pre-procedure instructions explained to patient. 11:08:09 Family in patients room. 11:08:11 Patient NPO since Midnight. 11:08:13 Is the patient allergic to Iodine/contrast media? No. 11:09:01 Is the patient allergic to Iodine/contrast media? No. 11:09:03 Is patient on blood thinner?Yes 11:09:06 ACC The patient was administered the following blood thiners within the last 24 hours: ACCPlavix 11:09:15 Patient diabetic? No. 11:09:19 Snore? Yes 11:09:28 Sleep apnea? No 11:09:30 Deviated septum? No 11:09:37 Dentures? Yes ? 11:09:44 Patient pain scale 0/10 ?. 11:09:55 IV right hand D/C'd due to infiltration. 11:10:11 IV started by Silas Cheek RN inright forearm with a 20 gauge IV catheter with 0.9% NaCl at KVO. 11:10:36 Lab results completed and on chart. 11:10:41 Left groin area was prepped with chlora-prep and draped in sterile fashion 11:10:42 Alarms reviewed by R. N. 11:10:43 Sharps counted by scrub and verified by R.N. 11:10:44 Physician paged 11:11:46 Use device set Femoral Dx 11:12:34 Oxygen 2 l/min NC was administered by Adrienne Reyes RN; used for procedure; 11:12:42 Lidocaine 2% 20ml vial added to field was administered by Stone Roa MD; for local anesthetic; 11:12:51 Heparin Flush Bag (1000units/500ml NS) 2 bags added to field was administered by Stone Roa MD; used for procedure; 11:13:00 0.9% NaCl 100 ml/hr I.V. was administered by Adrienne Reyes RN; Per physician; 11:13:07 ACIST Syringe (63326) opened to sterile field. 11:13:08 Bag Decanter (2002S) opened to sterile field. 11:13:08 Medline Cath Pack ([id number]) opened to sterile field. 11:13:10 DIAGNOSTIC WIRE .035 260cm J wire (720526) opened to sterile field. 11:13:13 ACIST Hand Control (78566) opened to sterile field. 11:13:13 ACIST Manifold (72092) opened to sterile field. 11:13:16 Tegaderm 4 x 4 (1626W) opened to sterile field. 11:13:23 PERCUTANEOUS ENTRY 19GA needle opened to sterile field. 11:13:25 Vital chart was started 11:13:35 SHEATH 6FR [place] (NTM538) opened to sterile field. 11:13:38 WHISPER 190cm wire ([id number]) opened to sterile field. 11:14:06 Physician arrived 11:14:07 --------ALL STOP TIME OUT------ 11:14:08 Final Timeout: patient, procedure, and site verified with staff and physician. All members of the team are in agreement. 11:14:10 Left groin site verified by team. 11:14:21 Physical assessment completed. ASA score P 2 - A patient with mild systemic disease as per Stone Roa MD. 11::26 Sedation plan: IV Moderate Sedation Medication:Versed, Fentanyl 11:17:12 Versed 2 mg I.V. was administered by Adrienne Reyes RN; for sedation; ::18 Fentanyl 100 mcg I.V. was administered by Adrienne Reyes RN; for sedation; ::06 Procedure started. ::06 Full Disclosure recording started 11::36 Fentanyl 50 mcg I.V. was administered by Adrienne Reyes RN; for sedation; ::45 Heparin Bolus 4000 units I.V. was administered by Adrienne Reyes RN; for anticoagulation; verified by dr. roa 11::45 Versed 1 mg I.V. was administered by Adrienne Reyes RN; for sedation; :: Local anesthetic to left femerol artery with Lidocaine 2% by Stone Roa MD.INITIAL ACCESS ONLY 11:24:13 GUIDE 6FR XBLAD 3.5 catheter ([id number]) opened to sterile field. 11:24:32 A 6 Fr Short sheath was inserted into the Right Radial artery 11:24:47 Procedure type changed to Cath procedure, Diagnostic procedure, PCI procedure, Coronary Stent, Coronary Stent Initial, Miscellaneous Procedures, Moderate Sedation up to 15 minutes 11:25:04 6 Fr XBLAD 3.5 guide catheter was inserted over the wire 11:25:31 Whisper wire advanced. 11:25:52 Wire advanced across lesion. 11:27:44 Inflation Number: 1 A CAYETANO RX 3.0 x 22 stent ([id number]) was prepped and advanced across the Prox LAD. The stent was deployed at 19 JOSHUA for 0:10 (min:sec). 11:28:21 Stent catheter was removed intact over wire. 11:28:22 Guide catheter removed. 11:28:36 EXOSEAL 6Fr (EX600) opened to sterile field. 11:28:54 Sheath removed intact; hemostasis achieved with Exoseal to the Right Radial artery. 11:28:56 Procedure ended.(Physican Out) 11:30:48 Fluoroscopy time 01.20 minutes. 11:30:52 Fluoroscopy dose: 217 mGy 11:30:52 Flurop Dose total: 217 11:30:57 Contrast amount:Isovue 300 22ml. 11:30:58 Sharps counted by scrub and verified by R.N. 11:31:00 Insertion/operative site no bleeding no hematoma. 11:31:05 Post left femerol artery:stable 11:31:07 Post Procedure Pulses reassessed and unchanged 11:31:12 Post-procedure physical assessment completed. ASA score P 2 - A patient with mild systemic disease as per Stone Roa MD. 11:31:15 Post procedure rhythm: unchanged. 11:31:18 Estimated blood loss: 10 ml 11:31:20 Post procedure instruction explained to patient.Patient verbalizes understanding. 11:31:44 Procedure and supply charges have been captured, reviewed, submitted and are correct. 11:31:50 Procedure Complication : No complications 11:31:52 Vital chart was stopped 11:31:53 See physician's report for complete and final results. 11:31:54 Report given to [facility]. 11:31:58 Patient transfered to [facility] with Bed. 11:31:59 Procedure ended. 11:31:59 Full Disclosure recording stopped 11:32:03 End room use (Document Last) 11:32:03 End room use (Document Last) Intervention Summary Intervention Notes Time ActionType Lesion and Equipment Used Action# Pressure Duration Attributes 11:27:[address] stent Prox LAD CAYETANO RX 3.0 x 1 19 00:10 22 stent ([id number]) Device Usage Item Name Manufacture Quantity Catalog Hospital Part [facility] Lot# / Number Charge Number Stock Stock Serial# Code ACIST Syringe Acist 1 61718 185804 636178 711011 20 (64772) [employer] Systems Inc Bag Decanter Microtek 1 2001S 613102 53116 520774 5 () Medical Inc. Medline Cath Cardinal 1 [id number] 849227 59381 843478 5 Located Within [facility] ([id number]) DIAGNOSTIC St [place] 1 642690 962347 654907 885539 30 WIRE .035 260cm J wire (139223) ACIST Hand Acist 1 18650 205488 337836 519731 5 Control Medical (21983) Systems Inc ACIST Manifold Acist 1 33548 034859 537168 599177 5 (60370) Medical Systems Inc Tegaderm 4 x 4 3M 1 1626W 966371 020367 081341 5 (1626W) PERCUTANEOUS [facility] 1 P51693 814800 299505 5 ENTRY 19GA needle SHEATH 6FR Terumo 1 SXE079 695970 070145 422161 40 [place] (IWK362) WHISPER 190cm [place] 1 [id number] 460343 197595 986979 5 wire Vascular (0232203QI) GUIDE 6FR Cardinal 1 [id number] 832052 683777 543489 10 XBLAD 3.5 Health catheter ([id number]) CAYETANO RX 3.0 x Medtronic 1 [id number] 093928 3764346 433321 5 [id number] 22 stent ([id number]) EXOSEAL 6Fr Cardinal 1 EX600 523444 126833 558827 10 (EX600) Health Signature Audit [place] Stage Time Signature Unsigned Intra-Procedure 10/21/2017 Bebe Cyr 11:35:38 AM RT(R) Signatures Monitor : Bebe Cyr Signature : RT Date : Time : [facility] [address] [place] [address]
--- NOTE | ~2017-10-19 | HP ---
PATIENT: DURAN PANTOJA MEDICAL RECORD: [id number] ACCOUNT: [id number] LOCATION:[address] : 56 ADMISSION DATE: 10/19/17 HISTORY AND PHYSICAL EXAMINATION ADMITTING DIAGNOSES: 1. Angina. 2. Coronary artery disease. 3. Previous percutaneous transluminal coronary angioplasty stent. 4. Hypertension. 5. Hyperlipidemia. 6. Smoking history. 7. Chronic obstructive pulmonary disease. HISTORY OF PRESENT ILLNESS: Mr. Pantoja presents with increasing anginal symptomatology, status post 3-vessel PTCA stent. He has severe distal vessel disease. Reviewing his film, he does have disease of the distal RCA that is amenable to further PTCA stent. PHYSICAL EXAMINATION: GENERAL APPEARANCE: Well-nourished, well-developed, appears stated age. Level of distress, comfortable. PSYCHIATRIC: Mental status, alert, normal affect. Orientation, oriented to time, place and person. EYES: Lids and conjunctiva, noninjected. No discharge, no pallor. ENT: Lips, teeth, gums, normal dentition. Oropharynx, no cyanosis, no pallor. NECK: Carotid arteries, bilateral normal upstroke, no bruits, no thrills. JUGULAR VEINS: No jugular venous pressure or distention. CERVICAL LYMPH NODES: Nontender, nonenlarged. THYROID: Not enlarged. Nontender. No nodules. LUNGS: Respiratory effort, unlabored. CHEST: Normal curvature. No thoracic deformity. No chest wall tenderness. Percussion, resonant. Auscultation, clear. No wheezes, no rales, no rhonchi. CARDIOVASCULAR: Precordial exam, nondisplaced. No heaves or pericardial thrills. Rate and rhythm, regular. Heart sounds, normal S1, normal S2. No S3, no gallop, no rub. Systolic murmur, not heard. Diastolic murmur, not heard. EXTREMITIES: No cyanosis, no edema. Peripheral pulses, full and equal in all extremities, except as noted. No bruits appreciated. ABDOMEN: Soft, nondistended. Normal aorta. No bruit. Nontender. No masses. Liver, nontender, no hepatomegaly. Spleen, nontender, no splenomegaly. MUSCULOSKELETAL: No joint tenderness. No joint swelling. No erythema. NEUROLOGICAL: Normal gait, normal strength, normal tone. SKIN: Warm and dry. REVIEW OF SYSTEMS: The patient reports easy bruising but reports no swollen glands. The patient reports no fever, no night sweats, no significant weight gain, no significant weight loss. No significant exercise tolerance. The patient reports no dry eyes, no irritation, no vision change. Patient reports no difficulty hearing and no ear pain. Patient reports no frequent nose bleeds or nose and sinus problems. Patient reports on arm pain on exertion. No shortness of breath while lying down. No history of heart murmur. Patient reports no cough, no wheezing or coughing up blood. Patient reports no abdominal pain, no vomiting. Normal appetite. No diarrhea and not vomiting blood. No nausea and no constipation. Patient reports no incontinence. No difficulty urinating. No hematuria. No increased frequency. Patient reports HISTORY AND PHYSICAL [id number] SUIRE,DURAN no muscle aches. No weakness, no arthralgias, no back pain. No swelling of the extremities. Patient reports no abnormal mole, no jaundice, no rashes. Reports no loss of consciousness. No weakness and no numbness. No seizures, dizziness, or headaches. The patient reports no depression, no sleep disturbance, feeling safe in a relationship and no alcohol abuse. Patient reports on fatigue. Reports no runny nose or sinus pressure. No itching, no hives, and no frequent sneezing. OVERALL IMPRESSION: Anginal symptomatology. PLAN: We will proceed with repeat cardiac catheterization to ensure patency of the previous stents and if these are all patent proceed with percutaneous transluminal coronary angioplasty stent of the distal RCA. Hopefully, this will help his anginal symptomatology. TRANSINT:[id number] Voice Confirmation ID: [id number] DOCUMENT ID: [id number] FLOYD MURPHY MD at 1323 CC: [id number] DICTATION DATE: 10/20/17 0843 ESCORT SERVICE ATTENDANT: 10/20/17 1231 DIS IN 10/21/17 [facility] [address] [place] [id number]
--- NOTE | ~2017-10-19 | OP ---
PATIENT NAME: DURAN YARBROUGH MEDICAL RECORD: [id number] :56 LOCATION:D.M2 D.2122 ADMISSION DATE:10/19/17 SURGEON: FLOYD MURPHY MD DATE OF OPERATION: 10/20/2017 PROCEDURES: 1. PTCA stent to RCA. 2. PTCA stent to RCA PLV. 3. PTCA stent to RCA PDA. 4. Left heart catheterization. 5. Selective coronary angiography. 6. Left ventriculogram. INDICATION: Angina and coronary artery disease. PROCEDURE IN DETAIL: After informed consent was obtained and after detailed explanation of risks, benefits as well as alternative therapies, the patient elected to proceed with angiogram and angioplasty. The right femoral area was prepped and draped in normal sterile fashion. The right femoral artery was cannulated via modified Seldinger technique with placement of 7-Ukrainian sheath. All catheters exchanged through this sheath. FINDINGS: Left ventriculogram was performed in the standard 30-degree SARMIENTO view reveals good cardiac wall motion throughout all segments. Overall ejection fraction estimated at 60%. SELECTIVE CORONARY ANGIOGRAPHY: 1. Left main showed no significant angiographic disease. 2. Left anterior descending has a 70+ percent stenosis proximally followed by previously placed stents that are widely patent. 3. Left circumflex has previously placed stents, these are widely with no significant restenosis. No disease elsewise. 4. The right coronary artery has previously placed stents, these are widely patent. There is 70% stenosis in the mid vessel, 70% stenosis at the PDA and PLV. PTCA STENT OF THE RIGHT CORONARY ARTERY PLV AND PDA: Right coronary artery was addressed with a 3.5 x 18, the PLV with a 2.5 x 15, the PDA with a 2.5 x 18. All were Wilberto stents. Result was 0% residual stenosis. OVERALL IMPRESSION: Successful percutaneous transluminal coronary angioplasty stent of the right coronary artery going from multiple areas of 70% initial stenosis to 0% residual. TRANSINT:[id number] Voice Confirmation ID: [id number] DOCUMENT ID: [id number] FLOYD MURPHY MD at 1323 CC: [id number] DICTATION DATE: 10/20/17 1301 CIVIL CLERK: 10/20/17 1315 DIS IN 10/21/17 [place] [address]
[2017-10-19 15:40] VITALS: BP 156/81; Ht 175.3 cm; Wt 100.5 kg
[2017-10-19 15:49] VITALS: BP 156/81
[2017-10-19 16:53] LABS: BASOPHILS 0.5 % (0-2); HEMATOCRIT 45.3 % (42.0-54.0); HEMOGLOBIN 15.3 g/dL (13.5-17.5); IMMATURE GRANULOCYTES 1.3 % (0-5); LYMPHOCYTES 35.6 % (15-50); MCH 31.8 pg (26.0-34.0); MCHC 33.8 g/dL (31.0-37.0); MCV 94.2 fL (80.0-100.0); MEAN PLATELET VOLUME 9.8 fL (7.4-10.4); MONOCYTES 13.6 % (2-11); PLATELET COUNT 233 10x3/uL (130-400); RBC 4.81 10x6/uL (4.20-6.10); RDW 14.5 % (11.5-14.5); WBC 7.4 10x3/uL (4.8-10.8)
[2017-10-19 17:10] LABS: INR 1.03 (0.85-1.17); PROTIME 13.1 SECONDS (11.6-15.0)
[2017-10-19 17:40] LABS: CALC OSMOLALITY 277 mosm/kg (275-300); CALCIUM 8.8 mg/dL (8.5-10.1); CARBON DIOXIDE 26.7 mmol/L (21.0-32.0); CHLORIDE - SERUM 105 mmol/L (98-107); CREATININE - SERUM 0.8 mg/dL (0.6-1.3); GLUCOSE 73 mg/dL (74-106); SODIUM 139 mmol/L (136-145); UREA NITROGEN 14 mg/dL (7-18); eGFR NON AFRICAN AMERICAN > 90 mL/min (90-120)
[2017-10-19 17:50] LABS: TROPONIN-I < 0.017 ng/mL (0.000-0.060)
[2017-10-19 21:32] VITALS: BP 137/68
[2017-10-20 03:25] VITALS: BP 145/74
[2017-10-20 07:48] VITALS: BP 174/92
[2017-10-20 11:32] VITALS: BP 170/77
[2017-10-20 20:06] VITALS: BP 144/80
[2017-10-21] VITALS: BP 137/69
[2017-10-21 06:10] VITALS: BP 162/81
[2017-10-21 07:49] VITALS: BP 150/74
== END 2017-10-21 16:50 | disposition home or self-care (01) ==
LOC: D.M2 13:58 → OBSVTIME 13:59 → D.M2 10-21 16:50
PROVIDERS: Internal Medicine Interventional Cardiology
DX: I25.119 Atherosclerotic heart disease of native coronary artery with unspecified angina pectoris (principal); I10 Essential (primary) hypertension; E78.5 Hyperlipidemia, unspecified; J44.9 Chronic obstructive pulmonary disease, unspecified; Z87.891 Personal history of nicotine dependence; Z01.812 Encounter for preprocedural laboratory examination

== ENCOUNTER 2020-02-19 11:14 | Inpatient (IN) | payer OTHER ==
[~2020-02-19] VITALS: Ht 175.3 cm; Wt 76.4 kg
--- NOTE | ~2020-02-19 | HEMODYNAMI ---
PATIENT:DURAN YARBROUGH MEDICAL RECORD: [id number] : 56 LOCATION:[facility] [address] [facility]# [id number] ADMISSION DATE: 02/19/20 Generatedon:02/20/202015:37 Patient name: DURAN YARBROUGH Patient #: [id number] SSN: [id number] : 1960 Date of study: 02/20/2020 Page: Of Hemodynamic Procedure Report Patient Data Patient Demographics Procedure consent was obtained First Name: DURAN Gender: Male Last Name: LINNEA : 1960 Patient #: [id number] Age: 59 year(s) Race: SSN: [id number] Additional ID: [id number] Contact details Address: [address] [place] [address] State: [place] City: [place] Zip code: [address] Past Medical History Allergies: No known allergies Admission Admission Data Admission Date: 02/19/2020 Admission Time: 11:28 Arrival Date: 02/20/2020 Arrival Time: 0:00 Admit Source: Other Insurance Payor: Private Room #: [id number] health insurance [facility] #: [id number] Height (in.): 69 BSA: 1.92 (m2) Height (cm.): 175.26 BMI: 24.86 (kg/m2) Weight (lbs.): 168.35 Weight (kg.): 76.36 Lab Results Lab Result Date: 02/20/2020 Lab Result Time: 0:00 Biochemistry Name Units Result Min Max BUN mg/dl 19 --(----)*- 7 18 CK-MB ng/ml 6.5 --(----)-* 0 3.6 Creatinine mg/dl 0.9 --(-*--)-- 0.6 1.3 eGFR ml/min 90 --(*---)-- 90 120 NONAFRICAN Troponin l ng/ml 0.6 --(----)-* 0 0.06 CBC Name Units Result Min Max Hematocrit % 42.7 --(*---)-- 42 54 Hemoglobin g/dl 13.2 -*(----)-- 13.5 17.5 Procedure Procedure Types Cath Procedure Diagnostic Procedure [facility] w/Coronaries Sedation Charges Moderate Sedation up to 15 minutes PCI Procedure PTCA PTCA Initial Hemochron ACT Test Procedure Description Procedure Date Procedure Date: 02/20/2020 Procedure Start Time: 15:12 Procedure End Time: 15:35 Procedure Staff Name Function Raji Hayward MD Performing Physician Rae Rueda RT Monitor Flip Cevallos RT Scrub Andreia House RN Nurse Indication Angina Procedure Data Cath Procedure Fluoroscopy Diagnostic fluoroscopy Total fluoroscopy Time: 5.1 time: 5.1 min min Diagnostic fluoroscopy Total fluoroscopy dose: 534 dose: 534 mGy mGy Contrast Material Contrast Material Type Amount (ml) Isovue 300 94 Entry Location Entry Primary Successful Side Size Upsize Upsize Entry Closure Succes sful Closure Location (Fr) 1 (Fr) 2 (Fr) Remarks Device Remarks Femoral Right 5 Fr 6 Fr Exoseal artery Short Estimated blood loss: 10 ml Diagnostic catheters Device Type Used For End Catheter Placement MULTIPACK JL 4.0 5Fr Procedure catheter MULTIPACK 3DRC 5Fr Procedure catheter MULTIPACK Pigtail 5 Fr Procedure catheter Procedure Complications No complications Procedure Medications Medication Administration Route Dosage Oxygen etCO2 Nasal cannula 2 l/min Lidocaine 2% added to field 20 Heparin Flush Bag added to field 2 bags (1000units/500ml NS) 0.9% NaCl I.V. 100 ml/hr Versed I.V. 1 mg Fentanyl I.V. 50 mcg Versed I.V. 1 mg Fentanyl I.V. 50 mcg Heparin Bolus I.V. 7500 units Plavix P.O. 75 mg Hemodynamics Rest BSA: 1.92 (m2) HGB: 13.2 (g/dl) O2 Consumption: Estimated: 241.27 (ml/min) O2 Co nsumption indexed: Estimated:125.66 (ml/min/m) Heart Rate: 92 (bpm) Pressure Samples Time Site Value (mmHg) Purpose Heart Use Rate(bpm) 15:20 LV 140/17,29 Snapshot 97 15:21 AO 142/73(100) Pullback 97 15:21 LV 139/-6,16 Pullback 97 Gradients Valve Time Site 1 Site 2 Mean SEP/DFP Peak To Heart Use (mmHg) (sec/min) Peak Rate (mmHg) (bpm) Aortic 15:21 LV AO 0 10 0 97 139/-6,16 142/73(100) Calculations Valve P-P Mean Valve Index Valve Source Name Gradient Area Flow (cm2) Aortic 0 0 0 0 Snapshots Pre Cath Intra NCS Post Cath Vital Signs Time Heart Resp SPO2 etCO2 NIBP (mmHg) Rhythm Pain Sedation Rate (ipm) (%) (mmHg) Status Level (bpm) 15:07:05 97 26 100 12.7 144/103(124) NSR 0 (11) 10(A) , No pain 15:11:19 93 17 94 38.8 146/96(123) NSR 0 (11) 9(A) , No pain 15:15:33 93 16 96 38.1 141/94(116) NSR 0 (11) 9(A) , No pain 15:19:45 96 17 96 39.6 146/95(122) NSR 0 (11) 9(A) , No pain 15:23:55 97 17 99 36.6 142/98(121) NSR 0 (11) 9(A) , No pain 15:28:07 96 21 95 37.3 141/101(122) NSR 0 (11) 9(A) , No pain 15:32:19 98 14 100 35.1 142/101(126) NSR 0 (11) 10(A) , No pain Medications Time Medication Route Dose Verified Delivered Reason Notes Effectiveness by by 15:09:28 Oxygen etCO2 2 Raji Buffie used for Nasal l/min Mainor House RN procedure cannula 15:09:34 Lidocaine 2% added 20ml Raji Raji for local to vial Mainor Hayward MD anesthetic field 15:09:40 Heparin Flush added 2 Raji Raji used for Bag to bags Mainor Hayward MD procedure (1000units/500ml field NS) 15:09:54 0.9% NaCl I.V. 100 Raji Buffie used for ml/hr Mainor House RN procedure 15:10:01 Versed I.V. 1 mg Raji Buffie for sedation Mainor House RN 15:10:07 Fentanyl I.V. 50 Raji Buffie for sedation mcg Mainor House RN 15:18:02 Versed I.V. 1 mg Raji Brandenie for sedation Mainor House RN 15:18:05 Fentanyl I.V. 50 Raji Boswell for sedation mcg Mainor House RN 15:25:26 Heparin Bolus I.V. 7500 Rajimicki Boswell for verif ied units Mainor House RN anticoagulation with dr hayward 15:32:50 Plavix P.O. 75 mg Raji Boswell for Mainor House RN antiplatelet therapy Procedure Log Time Note 14:30:18 Informed consent obtained and on chart 14:30:39 Procedure Status Urgent Heart Cath (IP). 14:30:41 Andreia House RN sent for patient. Start room use. 14:30:42 Time tracking: Regular hours (M-F 7:00 - 5:00) 14:30:45 Plan of Care:Hemodynamics will remain stable., Cardiac rhythm will remain stable., Comfort level will be maintained., Respiratory function will remain adequate., Patient/ family verbilizes understanding of procedure., Procedure tolerated without complication., Recovers from procedure without complications.. 14:32:32 H&P Date Dictated: 02/19/2020 Within 30 days and on chart.. 14:37:44 Admit Source: Other 14:37:49 Arrival Date: 02/20/2020 12:00:00 AM 14:37:59 Insurance Payor : Private health insurance 14:38:10 Patient Height : 69 inches 14:38:14 Patient Weight : 168.35 lbs 14:39:24 Lab Result : CK-MB 6.5 ng/ml 14:39:24 Lab Result : Troponin l 0.6 ng/ml 14:39:24 Lab Result : BUN 19 mg/dl 14:39:24 Lab Result : Creatinine 0.9 mg/dl 14:39:24 Lab Result : Hematocrit 42.7 % 14:39:24 Lab Result : Hemoglobin 13.2 g/dl 14:39:24 Lab Result : eGFR NONAFRICAN 90 ml/min 14:39:42 Patient allergic to No known allergies 14:39:50 Lab results completed and on chart. 14:39:54 Stress Test: no; N/A ? 14:39:59 Pre-procedure instructions explained to patient. 14:39:59 Pre-op teaching completed and patient verbalized understanding. 14:40:00 Family unavailable. 14:40:03 Patient NPO since Midnight. 14:47:05 Risk of Mortality: 0.3 14:47:08 Risk of blood transfusion: 0.1 14:47:10 Risk of ABBI: 0.4 14:47:12 Alarms reviewed by R. N. 14:47:13 Sharps counted by scrub and verified by R.N. 14:47:58 Indication : Angina 14:48:10 Diagnostic Cath Status : Urgent 14:54:10 Patient received from ICU to CCL 1 Alert and oriented. Tansferred to table in Supine position. 14:54:12 Warm blankets applied, and airam hugger turned on for patient comfort. 14:54:13 Correct patient and procedure confirmed by team. 14:54:13 ECG and BP/O2 sat monitors applied to patient. 14:54:18 Is the patient allergic to Iodine/contrast media? No. 14:54:41 Was the patient premedicated? Yes 14:54:44 Is patient on blood thinner?Yes 14:54:57 Patient diabetic? No. 14:54:58 If diabetic: On Metformin? N/A 14:55:00 ----Pre-sedation anethsthesia assessment.---- 14:55:03 Previous problem with sedation/anesthesia? No ? 14:55:05 Snore? Yes 15:02:40 Pt states that he just spoke with his son Duran and updated him, said he would wait on a phone call after procedure. 15:05:12 Sleep apnea? No 15:05:25 ACC The patient was administered the following blood thiners within the last 24 hours: ACCPlavix 15:05:28 Deviated septum? No 15:05:29 Opens mouth fully? Yes 15:05:30 Sticks out tongue? Yes 15:05:32 Airway obstruction? No ? 15:05:35 Dentures? Yes in tight 15:05:39 Pre procedure: right dorsailis pedis pulse 2+ Normal; easily identifiable; not easily obliterated 15:05:42 Patient pain scale 0/10 ?. 15:05:50 IV patent on arrival in left antecubital with 0.9% NaCl at [facility]. 15:05:55 Right groin area was prepped with chlora-prep and draped in sterile fashion 15:06:02 Vital chart was started 15:06:03 Full Disclosure recording started 15:06:06 Baseline sample Acquired. 15:06:11 Rhythm: sinus rhythm 15:06:21 Use device set Femoral Dx 15:06:23 ACIST Syringe (06545) opened to sterile field. 15:06:23 Bag Decanter (2002S) opened to sterile field. 15:06:24 Medline Cath Pack ([id number]) opened to sterile field. 15:06:25 ACIST Hand Control (14791) opened to sterile field. 15:06:25 ACIST Manifold (63957) opened to sterile field. 15:06:26 DIAGNOSTIC Multipack 5Fr catheter set ([id number]) opened to sterile field. 15:06:27 SHEATH 5FR Providence (MFV426) opened to sterile field. 15:06:28 EMERALD Guide Wire (826-292) opened to sterile field. 15:08:45 --------ALL STOP TIME OUT------ 15:08:46 Final Timeout: patient, procedure, and site verified with staff and physician. All members of the team are in agreement. 15:08:48 Right groin site verified by team. 15:08:52 Fire Safety Assessment: A--An alcohol-based skin anteseptic being used preoperatively., C--Open oxygen or nitrous oxide is being used., D--An ESU, laser, or fiber-optic light is being used. 15:08:55 Physical assessment completed. ASA score P 2 - A patient with mild systemic disease as per Raji Hayward MD. 15:08:57 1) 90+ Normal kidney functon but urine findings or structural abnormalities or genetic trait point to kidney disease. 15:08:59 Maximum allowable contrast dose (3.7 X eGFR X 0.75)250 ml. 15:09:03 Sedation plan: IV Moderate Sedation Medication:Versed, Fentanyl 15:09:28 Oxygen 2 l/min etCO2 Nasal cannula was administered by Andreia House RN; used for procedure; Verbal order read back and verified. 15:09:34 Lidocaine 2% 20ml vial added to field was administered by Raji Hayward MD; for local anesthetic; Verbal order read back and verified. 15:09:40 Heparin Flush Bag (1000units/500ml NS) 2 bags added to field was administered by Raji Hayward MD; used for procedure; Verbal order read back and verified. 15:09:54 0.9% NaCl 100 ml/hr I.V. was administered by Andreia House RN; used for procedure; Verbal order read back and verified. 15:10:01 Versed 1 mg I.V. was administered by Andreia House RN; for sedation; Verbal order read back and verified. 15:10:07 Fentanyl 50 mcg I.V. was administered by Andreia House RN; for sedation; Verbal order read back and verified. 15:11:45 Procedure started. 15:12:04 Local anesthetic to right femoral artery with Lidocaine 2% by Raji Hayward MD.INITIAL ACCESS ONLY 15:13:59 A 5 Fr sheath was inserted into the Right Femoral artery 15:14:01 Zero performed for pressure channel P1 15:14:56 A MULTIPACK JL 4.0 5Fr catheter was advanced over the wire and used for Procedure. 15:15:32 LCA angiography performed. 15:15:34 Injector settings: Ml/sec: 3, Volume: 6, 15:16:50 Catheter exchanged over wire. 15:17:25 A MULTIPACK 3DRC 5Fr catheter was advanced over the wire and used for Procedure. 15:17:50 RCA angiography performed. 15:17:54 Injector settings: Ml/sec: 3, Volume: 6, 15:18:02 Versed 1 mg I.V. was administered by Andreia House RN; for sedation; Verbal order read back and verified. 15:18:05 Fentanyl 50 mcg I.V. was administered by Andreia House RN; for sedation; Verbal order read back and verified. 15:18:26 Catheter exchanged over wire. 15:19:02 A MULTIPACK Pigtail 5 Fr catheter was advanced over the wire and used for Procedure. 15:19:58 LV gram done using SARMIENTO 15:21:07 LV hemodynamics recorded. 15:21:25 EF : 30 % 15:21:43 Proceeding to intervention. 15:21:49 SHEATH 6FR Providence (KQW256) opened to sterile field. 15:22:02 GUIDE 6FR JR 4.0 catheter ([id number]) opened to sterile field. 15:22:05 TUBING High Pressure Extension Tubing (Mainor) ([id number]) opened to sterile field. 15:22:05 INFLATOR Merit BasixCompak (SX8186) opened to sterile field. 15:22:07 LUGE Straight 300cm 0.014 guide wire ([id number]) opened to sterile field. 15::22 Sheath upsized to a 6 Fr Short. 15:23:31 6 Fr JR 4.0 guide catheter was inserted over the wire 15:25:26 Heparin Bolus 7500 units I.V. was administered by Andreia House RN; for anticoagulation; verified with dr hayward Verbal order read back and verified. 15:25:37 Pre PCI Site: [place] Dehe dRCA has 80% stenosis. 15:26:48 LUGE 300 wire advanced. 15:26:50 Wire advanced across lesion. 15:28:36 Inflate balloon Inflation number: 1 A EMERGE OTW 3.5 x 15 balloon ([id number]) was prepped and advanced across the Dist RCA 80, then inflated to 12 JOSHUA for 0:00 (min:sec) . 15:29:24 Balloon removed over the wire. 15:29:24 Wire removed. 15:29:25 Guide catheter removed. 15:29:32 EXOSEAL 6Fr (EX600) opened to sterile field. 15:29:49 Sheath removed intact; hemostasis achieved with Exoseal to the Right Femoral artery. 15::54 Fluoroscopy time 05.10 minutes. 15::58 Flurop Dose total: 534 15::58 Fluoroscopy dose: 534 mGy 15:30:05 Dose Area Product 61123 mGy/cm. 15:30:54 Contrast amount:Isovue 300 94ml. 15:30:57 Maximum allowable dose exceeded? No. 15::58 Sharps counted by scrub and verified by R.N. 15:31:13 Post procedure rhythm: unchanged. 15:31:16 Estimated blood loss: 10 ml 15:31:28 Procedure ended.(Physican Out) 15::37 Post-op/insertion site Right Femoral artery dressed using a 4 x 4 and Tegaderm. 15:31:44 Post right femoral artery:stable, soft, clean and dry 15:31:45 Post Procedure Pulses reassessed and unchanged 15:31:48 Post procedure: right dorsailis pedis pulse 2+ Normal; easily identifiable; not easily obliterated. 15:31:52 Post-procedure physical assessment completed. ASA score P 2 - A patient with mild systemic disease as per Raji Hayward MD. 15:31:53 Post procedure instruction explained to patient.Patient verbalizes understanding. 15:31:54 Patient needs reinforcement of post procedure teaching. 15:32:21 Procedure type changed to Cath procedure, Diagnostic procedure, LHC, C w/Coronaries, Sedation Charges, Moderate Sedation up to 15 minutes, PCI procedure, PTCA, PTCA Initial, Hemochron ACT Test 15:32:50 Plavix 75 mg P.O. was administered by Andreia House RN; for antiplatelet therapy; Verbal order read back and verified. 15:32:57 Procedure and supply charges have been captured, reviewed, submitted and are correct. 15:33:02 Procedure Complication : No complications 15:33:06 [facility] Findings: MVD- PCI performed (see procedure note) 15:33:07 Operative report dictated upon procedure completion. 15:33:08 See physician's report for complete and final results. 15:33:11 Report given to ICU. 15:33:15 Patient transfered to ICU with Bed. 15:33:19 ACC-PCI Only Patient was given prescriptions, or instructed by Raji Hayward MD to start/continue the following medications upon discharge: Plavix 15:35:16 Vital chart was stopped 15:35:19 Procedure ended. 15:35:19 Full Disclosure recording stopped 15:35:27 End room use (Document Last) 15:35:38 End room use (Document Last) 15:36:16 ACT drawn and resulted at out of range high seconds. (normal therapeutic range 180-240 seconds). Intervention Summary Intervention Notes Time ActionType Lesion and Equipment Action# Pressure Duration Attributes Used 15:28:36 Inflate Dist RCA EMERGE OTW 1 12 00:00 balloon 3.5 x 15 balloon ([id number]) Device Usage Item Name Manufacture Quantity Catalog Number Hospital Part Current Min imal Lot# / Charge Number Stock Stock Serial# Code ACIST Acist 1 70623 263065 276935 520225 20 Syringe Medical (01276) Systems Inc Bag Decanter Microtek 1 609720 84423 850464 5 () Medical Inc. Medline Cath Medline 1 [id number] 604489 21721 670509 5 Pack ([id number]) ACIST Hand Acist 1 44376 399621 487249 494508 5 Control Medical (64596) Systems Inc ACIST Acist 1 55407 685687 353760 334907 5 Manifold Medical (14725) Systems Inc DIAGNOSTIC Cardinal 1 ZK3834 482905 52507 716200 30 Multipack Health 5Fr catheter set (LB6252) SHEATH 5FR Terumo 1 IFM477 164420 765254 532148 5 Providence (URE227) EMERALD Cardinal 1 502-455 513735 875817 647218 5 Guide Wire Health (502-455) MULTIPACK JL Cardinal 1 326893 5 4.0 5Fr Health catheter MULTIPACK Cardinal 1 395320 5 3DRC 5Fr Health catheter MULTIPACK Cardinal 1 501201 5 Pigtail 5 Fr Health catheter SHEATH 6FR Terumo 1 ULP313 684705 134211 007030 40 Providence (YWU442) GUIDE 6FR JR Medtronic 1 [id number] 246216 72178 332813 1 4.0 catheter (DC5VM87) TUBING High Merit 1 [id number] 368687 55541 831087 10 Pressure Medical Extension Tubing (Mainor) ([id number]) INFLATOR Merit 1 SO7986 734557 414960 976520 15 Merit Medical BasixCompak (DL5460) LUGE [place] 1 [id number] 109533 856216 967644 5 Straight Scientific 300cm 0.014 guide wire (21656134) EMERGE OTW [place] 1 [id number] 435791 895422 465910 5 [id number] 3.5 x 15 Scientific balloon ([id number]) EXOSEAL 6Fr Cardinal 1 EX600 810960 374650 980404 10 (EX600) Health Signature Audit [place] Stage Time Signature Unsigned Intra-Procedure 02/20/2020 Rae Rueda 3:35:38 PM RT(R) Intra-Procedure 02/20/2020 Andreia House RN 3:35:54 PM Intra-Procedure 02/20/2020 Raji Hayward MD 3:37:[address] [facility] [address] [place] [address]
[2020-02-19 11:40] VITALS: BP 137/95
[2020-02-19 12:00] LABS: CKMB 6.5 U/L (0.0-3.6); CREATINE KINASE 205 UL (21-232)
--- NOTE | 2020-02-19 12:14 | NUR ---
DIANE DALLAS NOTIFIED OF ELEVATED TROPONIN
[2020-02-19 12:30] VITALS: BP 130/96
[2020-02-19 12:36] VITALS: BP 130/96; Ht 175.3 cm; Wt 76.4 kg
--- NOTE | 2020-02-19 12:46 | NUR ---
PT ARRIVED ON UNIT VIA STRETCHER, HOOKED TO MONITORS, PT IS ALERT AND ORIENTED, ON RA WITH 98% O2 SAT. ALL PPP, VSS, CALL LIGHT IN REACH
[2020-02-19 15:00] VITALS: BP 142/93
--- NOTE | 2020-02-19 15:00 | NUR ---
PT RESTING COMFORTABLY AT THIS TIME, VSS, CALL LIGHT IN REACH
[2020-02-19 16:23] LABS: BASOPHILS 0.6 % (0-2); EOSINOPHILS 2.5 % (0-7); HEMATOCRIT 42.7 % (42.0-54.0); HEMOGLOBIN 13.2 g/dL (13.5-17.5); IMMATURE GRANULOCYTES 0.4 % (0-5); LYMPHOCYTES 31.5 % (15-50); MCH 27.8 pg (26.0-34.0); MCHC 30.9 g/dL (31.0-37.0); MCV 90.1 fL (80.0-100.0); MEAN PLATELET VOLUME 9.8 fL (7.4-10.4); MONOCYTES 8.4 % (2-11); NEUTROPHILS 56.6 % (40-80); RBC 4.74 10x6/uL (4.20-6.10); WBC 8.6 10x3/uL (4.8-10.8)
[2020-02-19 16:24] LABS: PLATELET COUNT 337 10x3/uL (130-400)
[2020-02-19 16:37] LABS: ALBUMIN 3.6 g/dL (3.4-5.0); ALKALINE PHOSPHATASE 82 U/L (30-120); ALT (SGPT) 34 U/L (10-68); BILIRUBIN - TOTAL 0.96 mg/dL (0.2-1.3); CALC OSMOLALITY 283 mosm/kg (275-300); CALCIUM 8.2 mg/dL (8.5-10.1); CARBON DIOXIDE 23.4 mmol/L (21.0-32.0); CHLORIDE - SERUM 106 mmol/L (98-107); CREATININE - SERUM 0.9 mg/dL (0.6-1.3); GLUCOSE 108 mg/dL (74-106); MAGNESIUM - SERUM 2.1 mg/dL (1.8-2.4); POTASSIUM - SERUM 4.2 mmol/L (3.5-5.1); PROTEIN - SERUM 7.2 g/dL (6.4-8.2); SODIUM 141 mmol/L (136-145); UREA NITROGEN 19 mg/dL (7-18); eGFR NON AFRICAN AMERICAN > 90 mL/min (90-120)
[2020-02-19 17:07] LABS: APTT 34.5 SECONDS (22.8-39.4); INR 0.99 (0.85-1.17); PROTIME 13.1 SECONDS (11.6-15.0)
[2020-02-19 17:08] LABS: D-DIMER-QUANTITATIVE 0.54 ug/mLFEU (0.20-0.54)
--- NOTE | 2020-02-19 17:12 | NUR ---
RAD IN ROOM FOR DAILY CXR, PT TOLERATED WELL
[2020-02-19 19:00] VITALS: BP 126/89
--- NOTE | 2020-02-19 19:30 | NUR ---
PT AOX4, VSS, DENIES ANY PAIN AT THIS TIME. LUNG SOUNDS CLEAR THROUGHOUT, RESPIRATIONS EVEN/UNLABORED. S1S2 HEARD, PERIPHERAL PULSES PRESENT. BOWEL SOUNDS ACTIVE IN ALL QUADRANTS. MOVES EXTREMITIES X4 AGAINST GRAVITY. DENIES NEEDS AT THIS TIME. CALL LIGHT/BEDSIDE TABLE WITHIN PT REACH. CPOC.
--- NOTE | 2020-02-19 20:23 | NUR ---
HS MEDS GIVEN. FRESH WATER TO BEDSIDE. NO S/S OF ACUTE DISTRESS. DENIES ANY PAIN AT THIS TIME. CALL LIGHT/BEDSIDE TABLE WITHIN PT REACH. CPOC.
--- NOTE | 2020-02-19 21:48 | NUR ---
ATE 100% OF HS SNACK. VSS, NO C/O AT THIS TIME, DENIES PAIN. CALL LIGHT WITHIN PT REACH. CPOC.
--- NOTE | 2020-02-19 22:56 | NUR ---
PT REQUESTING PRN MORPHINE, RATE PAIN 3/10. GIVEN PER ORDER.
[2020-02-19 23:00] VITALS: BP 118/83
[2020-02-20 03:00] VITALS: BP 151/92
--- NOTE | 2020-02-20 03:20 | NUR ---
PT AROUSES EASILY TO VOICE, VSS, NO C/O PAIN AT THIS TIME. CALL LIGHT WITHIN PT REACH.
[2020-02-20 04:06] LABS: BASOPHILS 0.7 % (0-2); EOSINOPHILS 3.2 % (0-7); HEMATOCRIT 41.3 % (42.0-54.0); HEMOGLOBIN 12.7 g/dL (13.5-17.5); IMMATURE GRANULOCYTES 0.3 % (0-5); LYMPHOCYTES 35.6 % (15-50); MCH 27.5 pg (26.0-34.0); MCHC 30.8 g/dL (31.0-37.0); MCV 89.4 fL (80.0-100.0); MEAN PLATELET VOLUME 9.1 fL (7.4-10.4); NEUTROPHILS 51.2 % (40-80); PLATELET COUNT 285 10x3/uL (130-400); RBC 4.62 10x6/uL (4.20-6.10); RDW 15.9 % (11.5-14.5); WBC 7.5 10x3/uL (4.8-10.8)
[2020-02-20 04:57] LABS: ALKALINE PHOSPHATASE 71 U/L (30-120); ALT (SGPT) 26 U/L (10-68); BILIRUBIN - TOTAL 0.63 mg/dL (0.2-1.3); CALC OSMOLALITY 273 mosm/kg (275-300); CALCIUM 8.1 mg/dL (8.5-10.1); CARBON DIOXIDE 28.2 mmol/L (21.0-32.0); CHLORIDE - SERUM 103 mmol/L (98-107); CKMB 3.9 U/L (0.0-3.6); CREATINE KINASE 113 UL (21-232); CREATININE - SERUM 0.9 mg/dL (0.6-1.3); GLUCOSE 103 mg/dL (74-106); MAGNESIUM - SERUM 1.9 mg/dL (1.8-2.4); POTASSIUM - SERUM 3.7 mmol/L (3.5-5.1); PROTEIN - SERUM 6.7 g/dL (6.4-8.2); SODIUM 136 mmol/L (136-145); UREA NITROGEN 18 mg/dL (7-18); eGFR NON AFRICAN AMERICAN > 90 mL/min (90-120)
[2020-02-20 05:01] LABS: TROPONIN-I 0.505 ng/mL (0.000-0.060)
--- NOTE | 2020-02-20 05:57 | NUR ---
PT REQUESTS TO BATHE HIMSELF INDEPENDENTLY, MATERIALS/LINEN SET UP FOR PATIENT. DENIES FURTHER NEEDS.
[2020-02-20 07:12] VITALS: BP 122/76
--- NOTE | 2020-02-20 07:15 | NUR ---
REPORT RECIEVED ASSESSMENT COMPLETE PER FLOW SHET. VSS. PT RESTING COMFORTABLY WILL CONTINUET Domenic BAUER
--- NOTE | 2020-02-20 09:01 | NUR ---
DIANE DOUGLAS CALLED, STATED PT GOING TO COMMERCIAL PAINTER AT 1300
[2020-02-20 09:31] LABS: CHOL - HDL RATIO 3.3 ratio (2.3-4.9); LDL-HDL RATIO 1.9 ratio (1.5-3.5)
[2020-02-20 11:00] VITALS: BP 162/97
--- NOTE | 2020-02-20 11:06 | NUR ---
PT RESTING AT THIS TIME, VSS, CALL LIGHT IN REACH
--- NOTE | 2020-02-20 15:00 | NUR ---
PT TO MACHINE SNELLER.
--- NOTE | 2020-02-20 16:13 | NUR ---
TRANSFER FROM ICU POST HC. VS WNL. RIGHT GROIN STABLE WITHOUT BLEEDING OR HEMOMA NOTED. WILL MONITOR.
--- NOTE | 2020-02-20 19:39 | NUR ---
RECEIVED BEDSIDE REPORT. PATIENT IS ALERT AND ORIENTED, RESTING COMFORTABLY IN BED. RESPIRATIONS ARE EVEN AND UNLABORED. NO S/S OF DISTRESS. NO C/OPAIN. CALL LIGHT WITHIN REACH. WILL CPOC.
[2020-02-20 20:00] VITALS: BP 135/83
[2020-02-21] VITALS: BP 137/72
[2020-02-21 04:00] VITALS: BP 140/76
--- NOTE | 2020-02-21 05:01 | NUR ---
PAGED MARY ALICE SULTANA APN, VERIFIED ORDER. NEW ORDERS GIVEN 1 TO [place].
[2020-02-21 06:01] LABS: BASOPHILS 0.4 % (0-2); EOSINOPHILS 3.3 % (0-7); HEMATOCRIT 44.6 % (42.0-54.0); HEMOGLOBIN 13.6 g/dL (13.5-17.5); IMMATURE GRANULOCYTES 0.4 % (0-5); LYMPHOCYTES 26.4 % (15-50); MCH 27.7 pg (26.0-34.0); MCHC 30.5 g/dL (31.0-37.0); MCV 90.8 fL (80.0-100.0); MEAN PLATELET VOLUME 9.5 fL (7.4-10.4); MONOCYTES 9.4 % (2-11); NEUTROPHILS 60.1 % (40-80); PLATELET COUNT 296 10x3/uL (130-400); RBC 4.91 10x6/uL (4.20-6.10); RDW 15.7 % (11.5-14.5)
[2020-02-21 06:29] LABS: ALKALINE PHOSPHATASE 79 U/L (30-120); ALT (SGPT) 19 U/L (10-68); BILIRUBIN - TOTAL 0.68 mg/dL (0.2-1.3); CALC OSMOLALITY 278 mosm/kg (275-300); CALCIUM 8.1 mg/dL (8.5-10.1); CARBON DIOXIDE 26.1 mmol/L (21.0-32.0); CHLORIDE - SERUM 105 mmol/L (98-107); CREATININE - SERUM 0.8 mg/dL (0.6-1.3); GLUCOSE 92 mg/dL (74-106); MAGNESIUM - SERUM 1.9 mg/dL (1.8-2.4); POTASSIUM - SERUM 4.5 mmol/L (3.5-5.1); PROTEIN - SERUM 6.4 g/dL (6.4-8.2); SODIUM 139 mmol/L (136-145); UREA NITROGEN 14 mg/dL (7-18); eGFR NON AFRICAN AMERICAN > 90 mL/min (90-120)
[2020-02-21 11:09] VITALS: BP 137/77
[2020-02-21] MEDS ORDERED: FUROSEMIDE20 MG PO (11:29)
[2020-02-21] MEDS ORDERED: K-DUR20 MEQ PO (11:29)
[2020-02-21] MEDS ORDERED: PLAVIX75 MG PO (12:25)
[2020-02-21] MEDS ORDERED: Nicoderm [PBKC] TRANSDERM (12:25)
--- NOTE | 2020-02-21 13:01 | NUR ---
IV AND TELEMETRY DCD. DC PLANS GIVEN. UNDERSTANDING VOICED. WAITING FOR RIDE.
--- NOTE | 2020-02-21 15:03 | NUR ---
IV AND TELEMETRY DCD. DC PLANS GIVEN. UNDERSTANDING VOICED.
== END 2020-02-21 15:04 | disposition home or self-care (01) | DRG 250 ==
LOC: D.ER 11:14 → D.ICU 11:28 → D.M2 11:28
PROVIDERS: Family Medicine; Family Medicine Adult Medicine; Internal Medicine Cardiovascular Disease; ADMIT Family Medicine; ATTEND Family Medicine
PROC: B2111ZZ Fluoroscopy of Multiple Coronary Arteries using Low Osmolar Contrast (ICD-10-PCS; 2020-02-20)
PROC: B2151ZZ Fluoroscopy of Left Heart using Low Osmolar Contrast (ICD-10-PCS; 2020-02-20)
PROC: 02703ZZ Dilation of Coronary Artery, One Artery, Percutaneous Approach (ICD-10-PCS; principal; 2020-02-20 14:30)
PROC: 4A023N7 Measurement of Cardiac Sampling and Pressure, Left Heart, Percutaneous Approach (ICD-10-PCS; 2020-02-20 14:30)
DX: I21.4 Non-ST elevation (NSTEMI) myocardial infarction (principal); I50.43 Acute on chronic combined systolic (congestive) and diastolic (congestive) heart failure; F17.203 Nicotine dependence unspecified, with withdrawal; I25.110 Atherosclerotic heart disease of native coronary artery with unstable angina pectoris; I11.0 Hypertensive heart disease with heart failure; Z86.73 Personal history of transient ischemic attack (TIA), and cerebral infarction without residual deficits; E78.5 Hyperlipidemia, unspecified; I10 Essential (primary) hypertension